=== PATIENT | female | born 1945 | race Caucasian/White ===

== ENCOUNTER 2017-11-28 15:46 | Emergency (ER) | payer MEDICARE ==
[2017-11-28] MEDS ORDERED: DIPHENHYDRAMINE HCL 50 MG/ML VIAL IV ONE (16:22)
[2017-11-28] MEDS ORDERED: METHYLPREDNISOLONE INJ 125 MG/2 ML SDV IV ONE (16:22)
[2017-11-28] MEDS ORDERED: NORMAL SALINE 1000 ML 1,000 ML IV ONE (16:22)
[2017-11-28] MEDS ORDERED: FAMOTIDINE INJ/PF 20 MG/2 ML SDV IV ONE (16:22)
--- NOTE | 2017-11-28 16:23 | ER Document Report ---
ED Medical Screen (RME) - General Chief Complaint: Eye Problem Stated Complaint: RT EYE SWELLING Time Seen by Provider: 11/28/17 16:18 TRAVEL OUTSIDE OF THE [place] IN LAST 30 DAYS: No - HPI Notes: 11/28/17 16:23 Right eye swelling diffuse pruritus - Related Data Allergies/Adverse Reactions: No Known Allergies Allergy (Unverified 11/28/17 15:47) Past Medical History - Social History Chew tobacco use (# tins/day): No Frequency of alcohol use: None Drug Abuse: None - Past Medical History Cardiac Medical History: Reports: Hx Hypercholesterolemia, Hx Hypertension Renal/ Medical History: Denies: Hx Peritoneal Dialysis Psychiatric Medical History: Reports: Hx Bipolar Disorder, Hx Schizophrenia Past Surgical History: Reports: Hx Section, Hx Cholecystectomy Review of Systems - Review of Systems Constitutional: Other - Eye swelling and itching Physical Exam - Vital signs Vitals: Temp Pulse Resp BP Pulse Ox 98.3 F 74 18 155/80 H 96 11/28/17 15:53 11/28/17 15:53 11/28/17 15:53 11/28/17 15:53 11/28/17 15:53 - General General appearance: Appears well In distress: None Course - Re-evaluation Re-evalutation: 11/28/17 16:23 Ms. has thereafter compromise at this time concern for allergic reaction to Benadryl Pepcid and Solu-Medrol ordered patient was placed in the main side - Vital Signs Vital signs: Temp Pulse Resp BP Pulse Ox 98.3 F 74 18 155/80 H 96 11/28/17 15:53 11/28/17 15:53 11/28/17 15:53 11/28/17 15:53 11/28/17 15:53
[2017-11-28] MEDS ORDERED: POLYMYXIN B SULFATE/TMP OPH SOLN (10 ML/ER DISP) OS ONE (17:30)
[2017-11-28 18:50] LABS: ABSOLUTE EOSINOPHILS # (AUTO) 0.2 10^3/uL (0.0-0.6); ABSOLUTE LYMPHOCYTES (AUTO) 1.3 10^3/uL (0.5-4.7); ABSOLUTE MONOCYTES (AUTO) 0.3 10^3/uL (0.1-1.4); ABSOLUTE NEUT (AUTO) 5.2 10^3/uL (1.7-8.2); BASOPHILS % (AUTO) 0.5 % (0-2); EOSINOPHILS % (AUTO) 3.4 % (0-6); HEMATOCRIT 39.7 % (36.0-47.0); LYMPHOCYTES % (AUTO) 18.6 % (13-45); MEAN CORPUSCULAR HEMOGLOBIN 31.1 pg (27.0-33.4); MEAN CORPUSCULAR HGB CONC 35.3 g/dL (32.0-36.0); MEAN CORPUSCULAR VOLUME 88 fl (80-97); MONOCYTES % (AUTO) 4.1 % (3-13); PLATELET COUNT 268 10^3/uL (150-450); RED CELL DISTRIBUTION WIDTH 12.9 % (11.5-14.0); SEGMENTED NEUTROPHILS % (AUTO) 73.4 % (42-78); TOTAL CELLS COUNTED % (AUTO) 100 %; WHITE BLOOD COUNT 7.1 10^3/uL (4.0-10.5)
--- NOTE | 2017-11-28 19:14 | ER Document Report ---
ED Eye Complaint - General Chief Complaint: Eye Problem Stated Complaint: RT EYE SWELLING Time Seen by Provider: 11/28/17 16:18 Mode of Arrival: Ambulatory Information source: Patient Notes: Pt is a 72 year old female who presents to the ER today for swelling to her right eyelid that she woke up with this morning. She also has itching all over her body without hives or rash. She states she's had the itching and hives before but never the eye swelling. She denies pain to the eye or any drainage that she knows of. She denies any new soaps, detergents, foods that she knows of but admits that she's been out in the yard a lot planting recently. She denies difficulty swallowing or breathing. TRAVEL OUTSIDE OF THE [place] IN LAST 30 DAYS: No - Related Data Allergies/Adverse Reactions: No Known Allergies Allergy (Unverified 11/28/17 15:47) Past Medical History - General Information source: Patient - Social History Smoking Status: Never Smoker Chew tobacco use (# tins/day): No Frequency of alcohol use: None Drug Abuse: None Family History: Reviewed & Not Pertinent Patient has suicidal ideation: No Patient has homicidal ideation: No - Past Medical History Cardiac Medical History: Reports: Hx Hypercholesterolemia, Hx Hypertension Renal/ Medical History: Denies: Hx Peritoneal Dialysis Psychiatric Medical History: Reports: Hx Bipolar Disorder, Hx Schizophrenia Past Surgical History: Reports: Hx Section, Hx Cholecystectomy Review of Systems - Review of Systems Constitutional: No symptoms reported EENT: See HPI Cardiovascular: No symptoms reported Respiratory: No symptoms reported Gastrointestinal: No symptoms reported Genitourinary: No symptoms reported Female Genitourinary: No symptoms reported Musculoskeletal: No symptoms reported Skin: See HPI Hematologic/Lymphatic: No symptoms reported Neurological/Psychological: No symptoms reported Physical Exam - Vital signs Vitals: Temp Pulse Resp BP Pulse Ox 98.3 F 74 18 155/80 H 96 11/28/17 15:53 11/28/17 15:53 11/28/17 15:53 11/28/17 15:53 11/28/17 15:53 - Notes Notes: PHYSICAL EXAMINATION: GENERAL: scratching her arms, but in no acute distress. HEAD: Atraumatic, normocephalic. EYES: right upper and lower eyelids swollen shut, mild erythema, nontender, Pupils equal round and reactive to light, extraocular movements intact, sclera anicteric, conjunctiva with white discharge to right eye only ENT: ear canals without erythema or foreign body, TMs pearly deleon with good bony landmarks, nares patent, oropharynx clear without exudates. Moist mucous membranes. NECK: Normal range of motion, supple without lymphadenopathy LUNGS: CTAB and equal. No wheezes rales or rhonchi. HEART: Regular rate and rhythm without murmurs EXTREMITIES: Normal range of motion, no pitting edema. No cyanosis. NEUROLOGICAL: Cranial nerves grossly intact. Normal sensory/motor exams. PSYCH: Normal mood, normal affect. SKIN: Warm, Dry, normal turgor, no rashes or lesions noted Course - Re-evaluation Re-evalutation: 11/28/17 20:45 labwork unremarkable today, pt doing much better after pepcid, solumedrol, benadryl, able to open eye for me without any issue when I walk into the room. Due to erythema and drainage from eye that appears purulent, I will start pt on polymixin eye drops and clindamycin to cover for preseptal cellulitis. I have advised to continue benadryl every 4 hours. She is a diabetic, so she was not sent home on oral steroids. - Vital Signs Vital signs: Temp Pulse Resp BP Pulse Ox 98.1 F 67 16 163/83 H 100 11/28/17 19:57 11/28/17 19:57 11/28/17 19:57 11/28/17 19:57 11/28/17 16:22 - Laboratory Result Diagrams: 11/28/17 18:35 11/28/17 18:35 Laboratory results interpreted by me: 11/28/17 18:35 Glucose 281 H Discharge - Discharge Clinical Impression: eye lid swelling Allergic reaction Qualifiers: Encounter type: initial encounter Qualified Code(s): T78.40XA - Allergy, unspecified, initial encounter Condition: Stable Disposition: HOME, SELF-CARE Instructions: Eyedrop Use ([facility]) Additional Instructions: Please apply one drop of the eyedrops to your right eye every 3 hours while awake for 7 days. Please take Benadryl every 4 hours for at least the next 2 days. Return immediately for any new or worsening symptoms. Follow up with primary care provider, call tomorrow to make followup appointment. Prescriptions: Clindamycin HCl 300 mg PO TID #30 capsule
[2017-11-28 19:16] LABS: ALANINE AMINOTRANSFERASE 31 U/L (9-52); ALBUMIN 3.9 g/dL (3.5-5.0); ALKALINE PHOSPHATASE 74 U/L (38-126); ANION GAP 9 (5-19); ASPARTATE AMINO TRANSFERASE 17 U/L (14-36); BILIRUBIN,DIRECT 0.3 mg/dL (0.0-0.4); BILIRUBIN,TOTAL 0.3 mg/dL (0.2-1.3); BLOOD UREA NITROGEN 17 mg/dL (7-20); CALCIUM 9.5 mg/dL (8.4-10.2); CARBON DIOXIDE 29 mmol/L (22-30); CHLORIDE 103 mmol/L (98-107); GLUCOSE 281 mg/dL (75-110); POTASSIUM 4.8 mmol/L (3.6-5.0); SODIUM 141.1 mmol/L (137-145); TOTAL PROTEIN 6.8 g/dL (6.3-8.2)
[2017-11-28 20:20] VITALS: BP 163/83
== END 2017-11-28 20:00 | disposition home or self-care (01) ==
LOC: ER 15:46
DX: R22.9 Localized swelling, mass and lump, unspecified (principal); T78.40XA Allergy, unspecified, initial encounter; X58.XXXA Exposure to other specified factors, initial encounter; E78.00 Pure hypercholesterolemia, unspecified; I10 Essential (primary) hypertension; Z90.49 Acquired absence of other specified parts of digestive tract
CPT/HCPCS: 99283; 96361; 96374; 96375; 36415; 85025; 80053; J1200; J3490; J2930; J7030; S0028

== ENCOUNTER 2017-12-03 11:12 | Emergency (ER) | payer MEDICARE ==
--- NOTE | 2017-12-03 11:34 | ER Document Report ---
ED Skin Rash/Insect Bite/Abscs - General Chief Complaint: Rash Stated Complaint: RASH Time Seen by Provider: 12/03/17 11:20 Mode of Arrival: Ambulatory Information source: Patient Notes: 72-year-old female presented to ED for complaint of rash itching burning to the eye face neck and arms. She states it started several days before Monday. She states she came in on Monday and was treated with steroids clindamycin and eyedrops. She states it is not gotten any better but is actually gotten worse. She is alert and oriented respirations regular and unlabored speaks with a even voice and walks with a even steady gait. TRAVEL OUTSIDE OF THE [place] IN LAST 30 DAYS: No - HPI Patient complains to provider of: Skin rash/lesion Onset: Last week Onset/Duration: Gradual, Worse Quality of pain: Burning Severity: Mild Pain Level: 2 Skin Character: Erythema, Tenderness, Thickening, Vesicular Skin Temperature: Warm Quality of rash: Itchy, Painful Exacerbated by: Denies Relieved by: Denies Similar symptoms previously: Yes Recently seen / treated by doctor: Yes - Related Data Allergies/Adverse Reactions: No Known Allergies Allergy (Verified 12/03/17 11:12) Past Medical History - General Information source: Patient - Social History Smoking Status: Never Smoker Frequency of alcohol use: None Drug Abuse: None Lives with: Alone Family History: Reviewed & Not Pertinent Patient has suicidal ideation: No Patient has homicidal ideation: No - Past Medical History Cardiac Medical History: Reports: Hx Hypercholesterolemia, Hx Hypertension Pulmonary Medical History: Reports: None EENT Medical History: Reports: None Neurological Medical History: Reports: None Endocrine Medical History: Reports: Hx Diabetes Mellitus Type 2 Renal/ Medical History: Reports: None Malignancy Medical History: Reports: None GI Medical History: Reports: None Musculoskeltal Medical History: Reports Hx Arthritis Psychiatric Medical History: Reports: Hx Bipolar Disorder, Hx Schizophrenia Traumatic Medical History: Reports: None Infectious Medical History: Reports: None Past Surgical History: Reports: Hx Section, Hx Cholecystectomy Review of Systems - Review of Systems Constitutional: No symptoms reported EENT: Other - Rash to the face all around the right eye Cardiovascular: No symptoms reported Respiratory: No symptoms reported Gastrointestinal: No symptoms reported Genitourinary: No symptoms reported Female Genitourinary: No symptoms reported Musculoskeletal: No symptoms reported Skin: Rash - Face arms Hematologic/Lymphatic: No symptoms reported Neurological/Psychological: No symptoms reported Physical Exam - Vital signs Vitals: Temp Pulse BP Pulse Ox 98.2 F 75 132/67 H 98 12/03/17 11:16 12/03/17 11:16 12/03/17 11:16 12/03/17 11:16 Interpretation: Normal - General General appearance: Appears well, Alert - HEENT Head: Normocephalic, Atraumatic, Other - Rash to most of the right side of the face some around the mouth on the left irritation to the right eye. Dr. Garcia examined the eye and stated there was no dendrites in the eye. Eyes: Normal Conjunctiva: No: Icteric, Injected, Purulent discharge Cornea: No: Corneal abrasion, Corneal ulcer, Dendrite, Embedded foreign body, Flourescein stain uptake, Opacified, Superficial foreign body Pupils: PERRL - Respiratory Respiratory status: No respiratory distress Chest status: Nontender Breath sounds: Normal Chest palpation: Normal - Cardiovascular Rhythm: Regular Heart sounds: Normal auscultation Murmur: No - Abdominal Inspection: Normal Distension: No distension Bowel sounds: Normal Tenderness: Nontender Organomegaly: No organomegaly - Back Back: Normal, Nontender - Extremities General upper extremity: Normal inspection, Nontender, Normal color, Normal ROM , Normal temperature General lower extremity: Normal inspection, Nontender, Normal color, Normal ROM , Normal temperature, Normal weight bearing. No: Danita's sign - Neurological Neuro grossly intact: Yes Cognition: Normal Orientation: AAOx4 Moises Coma Scale Eye Opening: Spontaneous Moises Coma Scale Verbal: Oriented Ward Coma Scale Motor: Obeys Commands Ward Coma Scale Total: 15 Speech: Normal Motor strength normal: LUE, RUE, LLE, RLE Sensory: Normal - Psychological Associated symptoms: Normal affect, Normal mood - Skin Skin Temperature: Warm Skin Moisture: Dry Skin Color: Normal Location of irregularity: Face - Areas of the rash to the face are rough and red there are some patches of vesicular type rash, Extremities - bilateral antecubitals vesicular type rash to the right arm, red inflammatory rash to the left arm, Other - Under bilateral breast red inflamed yeasty type rash Character of irregularity: Vesicular, Erythematous Irregularity with: Swelling, Inflammation Course - Re-evaluation Re-evalutation: 12/03/17 13:[address] Garcia to come and examined the multiple rashes. She agreed the part of the areas looked herpetiform, part looked like a yeast rash and part actually looked like psoriasis. Patient was recommended to follow-up with a bareback rider and in shop service technician and a primary doctor. She was treated with Valtrex and steroids. She was also treated with Mycolog to the yeast rash under her breast. Patient was given a prescription for the Valtrex steroids and Mycolog. Dr. Garcai examined the eyes and stated she did not see any dendrites in the right eye that the patient states is irritated. - Vital Signs Vital signs: Temp Pulse Resp BP Pulse Ox 98.1 F 71 18 134/69 H 97 12/03/17 12:37 12/03/17 12:37 12/03/17 12:37 12/03/17 12:37 12/03/17 12:37 Discharge - Discharge Clinical Impression: Rash and nonspecific skin eruption, Fungal rash of trunk Shingles Qualifiers: Herpes zoster complications: unspecified herpes zoster complication Qualified Code(s): B02.8 - Zoster with other complications Condition: Stable Disposition: HOME, SELF-CARE Instructions: Family Physicians / Practices Additional Instructions: Shingles You have shingles. Shingles is caused by the chicken pox virus, The virus has been surviving dormant in a nerve cell since you had chicken pox years ago. The virus has spread down a nerve root to reach the skin. Typically, an band-like area of pain and skin sensitivity develops, then small blisters erupt in the area. Shingles lasts two or three weeks, but sometimes leaves persistent pain. You are contagious -- you can give children chicken pox. But you can't give anyone shingles. Antiviral medicines (such as acyclovir or famciclovir) can help, but the rash usually worsens for about a week. Pain medication is often given if the area hurts. Antihistamines such as Benadryl may be necessary for itching if it does not respond to soda baths and calamine lotion. Sometimes cortisone medicine or nerve-block shots are necessary if pain is severe. If the area remains severely painful as the sores heal, or if you suspect an infection developing in the sores, see your doctor. STEROID MEDICATION: You have been given a medicine of the cortisone/steroid class. This medication is used to control inflammation or allergy. It is usually only given for a short period of time, until the acute process subsides. There are usually no side effects from short-term use of cortisone-like medications. Some persons feel an increased sense of well-being and are not sleepy at bedtime. Long-term use of cortisone medications is best avoided, unless required for a severe condition. If your condition does not remit, or relapses after the course of corticosteroid medication, you should consult your physician. You will be treated with Mycolog to the rash under her breast as this is a yeast rash. Apply that twice a day after cleaning the area with some soap water rinse and and pat dry. Try to keep this area dry. You will be treated with antiviral medicine for the shingles. You will be treated with steroid medication for the itching and irritation and pain from the various rashes. You need to follow-up with a primary doctor and a bareback rider as soon as possible it would also be advisable follow-up with the in shop service technician for the irritation to your right eye. This steroid medication may make you go a little higher with your diabetes please be careful what you eat to decrease the raise and your blood sugar. FOLLOW-UP CARE: If you have been referred to a physician for follow-up care, call the physician s office for an appointment as you were instructed or within the next two days. If you experience worsening or a significant change in your symptoms, notify the physician immediately or return to the Emergency Department at any time for re-evaluation. Prescriptions: Nystatin/Triamcin [Mycolog-II Ointment] 1 applic TP BID #1 tube Prednisone [Sterapred Ds] 1 pkg PO ASDIR PRN 12 Days tab.ds.pk PRN Reason: Valacyclovir HCl [Valtrex] 1,000 mg PO TID #21 tablet Forms: Elevated Blood Pressure Referrals: ANNE YANCEY DO [ACTIVE STAFF] - Follow up as needed SHANTAL NOEL DO [ACTIVE STAFF] - Follow up as needed
[2017-12-03] MEDS ORDERED: VALACYCLOVIR HCL 500 MG TABLET PO ONE (11:51)
[2017-12-03] MEDS ORDERED: PREDNISONE 20 MG TABLET PO ONE (11:52)
[2017-12-03] MEDS ORDERED: NYSTATIN/TRIAMCIN OINTMENT 15 GM TP ONE ×2 (11:52→12:45)
[2017-12-03] MEDS ORDERED: NYSTATIN/TRIAMCIN OINTMENT 15 GM TP PRN (12:52)
[2017-12-03 13:13] VITALS: BP 134/69
== END 2017-12-03 12:57 | disposition home or self-care (01) ==
LOC: ER 11:12
DX: R21 Rash and other nonspecific skin eruption (principal); B36.8 Other specified superficial mycoses; B02.8 Zoster with other complications; E78.00 Pure hypercholesterolemia, unspecified; I10 Essential (primary) hypertension; E11.9 Type 2 diabetes mellitus without complications; Z90.49 Acquired absence of other specified parts of digestive tract
CPT/HCPCS: 99282; J3490; A9270 ×2; J7512

== ENCOUNTER 2018-07-27 12:46 | Emergency (ER) | payer MEDICARE ==
--- NOTE | 2018-07-27 14:52 | ER Document Report ---
ED General - General Chief Complaint: Cough Stated Complaint: COUGH,CONGESTION Time Seen by Provider: 07/27/18 14:44 Mode of Arrival: Ambulatory Information source: Patient Notes: 73-year-old female with a history of hypertension and hyperlipidemia presents the emergency department with complaints of nasal congestion and a cough for the last 3 weeks. Patient denies any fever, chills, chest pain, shortness of breath, nausea, vomiting, diarrhea. She does not smoke. She denies a history of any lung diseases. TRAVEL OUTSIDE OF THE [place] IN LAST 30 DAYS: No - HPI Onset: Other - 3 weeks Severity: Mild Associated symptoms: Rhinnorhea Exacerbated by: Denies Relieved by: Denies Similar symptoms previously: Yes Recently seen / treated by doctor: No - Related Data Allergies/Adverse Reactions: No Known Allergies Allergy (Verified 07/27/18 12:50) Past Medical History - General Information source: Patient - Social History Smoking Status: Never Smoker Frequency of alcohol use: None Drug Abuse: None Family History: Reviewed & Not Pertinent Patient has suicidal ideation: No Patient has homicidal ideation: No - Past Medical History Cardiac Medical History: Reports: Hx Hypercholesterolemia, Hx Hypertension Endocrine Medical History: Reports: Hx Diabetes Mellitus Type 2 Renal/ Medical History: Denies: Hx Peritoneal Dialysis Musculoskeletal Medical History: Reports Hx Arthritis Psychiatric Medical History: Reports: Hx Bipolar Disorder, Hx Schizophrenia Past Surgical History: Reports: Hx Section, Hx Cholecystectomy Review of Systems - Review of Systems Constitutional: No symptoms reported EENT: Nose congestion, Nose discharge Cardiovascular: No symptoms reported Respiratory: Cough Gastrointestinal: No symptoms reported Genitourinary: No symptoms reported Female Genitourinary: No symptoms reported Musculoskeletal: No symptoms reported Skin: No symptoms reported Hematologic/Lymphatic: No symptoms reported Neurological/Psychological: No symptoms reported -: Yes All other systems reviewed and negative Physical Exam - Vital signs Vitals: Temp Pulse Resp BP Pulse Ox 99.5 F 52 L 16 130/53 H 98 07/27/18 13:20 07/27/18 13:20 07/27/18 13:20 07/27/18 13:20 07/27/18 13:20 - Notes Notes: PHYSICAL EXAMINATION: GENERAL: Well-appearing, well-nourished and in no acute distress. HEAD: Atraumatic, normocephalic. EYES: Pupils equal round and reactive to light, extraocular movements intact, conjunctiva are normal. ENT: Nares patent, oropharynx clear without exudates. Moist mucous membranes. NECK: Normal range of motion, supple without lymphadenopathy LUNGS: Breath sounds clear to auscultation bilaterally and equal. No wheezes rales or rhonchi. HEART: Regular rate and rhythm without murmurs Female : deferred Musculoskeletal: Normal range of motion, no pitting or edema. No cyanosis. NEUROLOGICAL: Cranial nerves grossly intact. Normal speech, normal gait. Normal sensory, motor exams PSYCH: Normal mood, normal affect. SKIN: Warm, Dry, normal turgor, no rashes or lesions noted. Course - Re-evaluation Re-evalutation: 07/27/18 17:19 Patient's vital signs are stable. She denies any chest pain or shortness of breath. Chest x-ray does not show an acute process. Flu was negative. I will discharge the patient home. Patient instructed to follow-up with her primary care physician this week, to take the medication prescribed as directed, and to return for worsening symptoms. - Vital Signs Vital signs: Temp Pulse Resp BP Pulse Ox 99.5 F 52 L 16 130/53 H 98 07/27/18 13:20 07/27/18 13:20 07/27/18 13:20 07/27/18 13:20 07/27/18 13:20 Discharge - Discharge Clinical Impression: Bronchitis Condition: Good Disposition: HOME, SELF-CARE Instructions: Bronchitis ([facility]) Prescriptions: Benzonatate [Tessalon Perle 100 mg Capsule] 100 mg PO Q8HP PRN #20 cap PRN Reason: Albuterol Sulfate [Proair HFA Inhalation Aerosol 8.5 gm MDI] 2 puff IH Q4H PRN #1 mdi PRN Reason: Azithromycin [Zithromax 250 mg Tablet] 250 mg PO ASDIR PRN #6 tablet PRN Reason: Referrals: FRANCE DE LA FUENTE MD [ACTIVE STAFF] - Follow up as needed
--- NOTE | 2018-07-27 15:54 | RADIOLOGY REPORT (SQ) ---
EXAM DESCRIPTION: CHEST 2 VIEWS COMPLETED DATE/TIME: 07/27/2018 3:41 pm REASON FOR STUDY: cough COMPARISON: None. EXAM PARAMETERS: NUMBER OF VIEWS: two views TECHNIQUE: Digital Frontal and Lateral radiographic views of the chest acquired. RADIATION DOSE: NA LIMITATIONS: none FINDINGS: LUNGS AND PLEURA: Nodular density just lateral to the aortic arch, not well visualized on lateral view. Calcified granuloma right upper lobe. No effusions. MEDIASTINUM AND HILAR STRUCTURES: No masses or contour abnormalities. HEART AND VASCULAR STRUCTURES: Heart normal size. No evidence for failure. BONES: No acute findings. HARDWARE: None in the chest. OTHER: No other significant finding. IMPRESSION: Possible lung nodule left upper lobe. No infiltrate. TECHNICAL DOCUMENTATION: JOB ID: [id number] [employer]- All Rights Reserved Reading location - IP/workstation name: [email or web address]
[2018-07-27 17:08] LABS: A TYPE INFLUENZA AG NEGATIVE (NEGATIVE); B INFLUENZA AG NEGATIVE (NEGATIVE)
[2018-07-27 17:28] VITALS: BP 142/64
== END 2018-07-27 17:31 | disposition home or self-care (01) ==
LOC: ER 12:46
DX: J40 Bronchitis, not specified as acute or chronic (principal); R05 Cough; R09.81 Nasal congestion; J34.89 Other specified disorders of nose and nasal sinuses; I10 Essential (primary) hypertension; E11.9 Type 2 diabetes mellitus without complications
CPT/HCPCS: 71046; 87804; 99283

== ENCOUNTER → 2018-09-04 | Outpatient (CLI) | payer MEDICARE ==
--- NOTE | 2018-09-04 11:01 | RADIOLOGY REPORT (SQ) ---
EXAM DESCRIPTION: CHEST PA/LATERAL COMPLETED DATE/TIME: 09/04/2018 10:43 am REASON FOR STUDY: COUGH COMPARISON: None. EXAM PARAMETERS: NUMBER OF VIEWS: two views TECHNIQUE: Digital Frontal and Lateral radiographic views of the chest acquired. RADIATION DOSE: NA LIMITATIONS: none FINDINGS: LUNGS AND PLEURA: Stable left upper lobe suprahilar are linear opacity, not significantly changed from prior. No evidence of new airspace disease. No pleural effusion or pneumothorax. Unch anged right upper lung calcified granuloma. MEDIASTINUM AND HILAR STRUCTURES: No masses or contour abnormalities. HEART AND VASCULAR STRUCTURES: Normal heart size. Aortic atherosclerosis. BONES: No acute findings. HARDWARE: None in the chest. OTHER: No other significant finding. IMPRESSION: No evidence of acute cardiopulmonary process. Stable nodular left suprahilar opacity possibly, scarring although underlying lesion is not excluded. Noncontrast CT could be considered for further characterization. TECHNICAL DOCUMENTATION: JOB ID: [id number] [employer]- All Rights Reserved Reading location - IP/workstation name: [email or web address]
== END ==
LOC: OD 10:28
PROVIDERS: ATTEND Nurse Practitioner Family
DX: R05 Cough (principal)
CPT/HCPCS: 71046

== ENCOUNTER → 2018-09-12 | Outpatient (CLI) | payer MEDICARE ==
--- NOTE | 2018-09-13 14:39 | WOMENS IMAGING REPORT ---
EXAM DESCRIPTION: BILAT SCREENING MAMMO W/CAD COMPLETED DATE/TIME: 09/12/2018 11:49 am REASON FOR STUDY: Z12.31 ROUTINE BILATERAL [id number] ENCNTR SCREEN MAMMOGRAM FOR MALIGNANT NE OPLASM OF [place] COMPARISON: Old films are not available TECHNIQUE: Standard craniocaudal and mediolateral oblique views of each breast recorded using [employer] l acquisition. LIMITATIONS: None. FINDINGS: RIGHT BREAST MASSES: No suspicious masses. CALCIFICATIONS: No new or suspicious calcifications. ARCHITECTURAL DISTORTION: None. DEVELOPING DENSITY: None. ASYMMETRY: None noted. OTHER: No other significant findings. LEFT BREAST MASSES: No suspicious masses. CALCIFICATIONS: Calcifications are scattered throughout the left breast 12 o'clock position about 4 t o 7 cm from the nipple. Evaluation of these microcalcifications with compression magnification view in the CC and 90 mediolateral orientations is recommended for followup. ARCHITECTURAL DISTORTION: None. DEVELOPING DENSITY: None. ASYMMETRY: None noted. OTHER: No other significant findings. Read with the assistance of CAD. .[facility] - R2 Cenova Version 1.3 .[facility] Imaging - R2 Cenova Version 1.3 .[facility] Imaging - R2 Cenova Version 2.4 .[facility] - R2 Cenova Version 2.4 .[facility] - R2 [employer] Version 9.2 IMPRESSION: No mammographic evidence for malignancy right breast. Calcifications left breast 12 o'clock position for which additional diagnostic mammograms are recomme nded. BREAST DENSITY: b. There are scattered areas of fibroglandular density. BIRAD: 0 Incomplete: Needs Additional Imaging Evaluation and/or prior Mammograms for Comparison. RECOMMENDATION: RECOMMENDED FOLLOW-UP: Additional diagnostic left breast mammograms The patient will be contacted for additional imaging. COMMENT: The patient has been notified of the results by letter per SA requirements. Additional no tification policies are in place for contacting patient with suspicious or incomplete findings. Quality ID #[id number]: The [employer] recommends an annual screening mammogram for women aged 40 years or over. This facility utilizes a reminder system to ensure that all patients receive reminder letters, and/or direct phone calls for appointments. This includes reminders for routine scr eening mammograms, diagnostic mammograms, or other Breast Imaging Interventions when appropriate. Th is patient will be placed in the appropriate reminder system. The [employer] (ACR) has developed recommendations for screening MRI of the breast s in certain patient populations, to be used in conjunction with mammography. Breast MRI surveillanc e may be appropriate for women with more than 20% lifetime risk of developing breast cancer as deter mined by genetic testing, significant family history of the disease, or history of mantle radiation f or Hodgkins Disease. ACR Practice Guidelines 2008. TECHNICAL DOCUMENTATION: FINDING NUMBER: (1) ASSESSMENT: (1) JOB ID: [id number] [employer]- All Rights Reserved Reading location - IP/workstation name: [email or web address]
== END ==
LOC: WI 11:31
PROVIDERS: ATTEND Nurse Practitioner Family
DX: Z12.31 Encounter for screening mammogram for malignant neoplasm of breast (principal); R92.0 Mammographic microcalcification found on diagnostic imaging of breast
CPT/HCPCS: 77067

== ENCOUNTER 2018-10-17 12:24 | Emergency (ER) | payer MEDICARE ==
[2018-10-17] MEDS ORDERED: PREDNISONE 20 MG TABLET PO ONE (13:33)
--- NOTE | 2018-10-17 13:39 | ER Document Report ---
ED Skin Rash/Insect Bite/Abscs - General Chief Complaint: Facial Swelling Stated Complaint: SWOLLEN EYES Time Seen by Provider: 10/17/18 13:25 Primary Care Provider: LALO GAN FNP-C [Primary Care Provider] - Follow up as needed Mode of Arrival: Ambulatory Information source: Patient TRAVEL OUTSIDE OF THE [place] IN LAST 30 DAYS: No - HPI Patient complains to provider of: Skin rash/lesion Notes: Patient here with complaints of itching/rash/swelling. Patient states that a few days ago she noticed some bumps to her right hand and right upper arm. She then started having some itching to the right side of her face. Yesterday she started noticing some swelling in the right side of face, this morning when she woke up the swelling was much worse. She states that it still itches. The skin lu somewhat. She denies any blurred or lost vision. She denies any fevers. She denies any lip, tongue swelling. No difficulty breathing or swallowing. She denies any vomiting or diarrhea. No chest pain or shortness of breath. No new soaps, detergents, lotions, medications. No known sick contacts. No other complaints. - Related Data Allergies/Adverse Reactions: No Known Allergies Allergy (Verified 10/17/18 13:22) Past Medical History - Social History Smoking Status: Never Smoker Chew tobacco use (# tins/day): No Frequency of alcohol use: None Drug Abuse: None Family History: Reviewed & Not Pertinent Patient has suicidal ideation: No Patient has homicidal ideation: No - Past Medical History Cardiac Medical History: Reports: Hx Hypercholesterolemia, Hx Hypertension Endocrine Medical History: Reports: Hx Diabetes Mellitus Type 2 Renal/ Medical History: Denies: Hx Peritoneal Dialysis Musculoskeletal Medical History: Reports Hx Arthritis Psychiatric Medical History: Reports: Hx Bipolar Disorder, Hx Schizophrenia Past Surgical History: Reports: Hx Section, Hx Cholecystectomy, Hx Orthopedic Surgery - right ankle Review of Systems - Review of Systems -: Yes All other systems reviewed and negative Physical Exam - Vital signs Vitals: Temp Pulse Resp BP Pulse Ox 97.9 F 75 18 148/65 H 99 10/17/18 12:34 10/17/18 12:34 10/17/18 12:34 10/17/18 12:34 10/17/18 12:34 - Notes Notes: GENERAL: alert, cooperative, nontoxic, no distress. HEAD: normocephalic, atraumatic EYES: conjunctiva pink without discharge, swelling to the right periorbital area. No redness, no tenderness. No vesicular lesions or rash. EARS: Mild swelling noted to the right earlobe. No redness, vesicles or drainage. No tenderness. NOSE: atraumatic, no external swelling MOUTH/THROAT: mucous membranes moist and pink. No lip or tongue swelling. Voice is normal. No trismus or drooling. NECK: soft, supple, full range of motion, no meningismus. CHEST: no distress, lungs clear and equal throughout. No wheezing, rales, rhonchi. CARDIAC: regular rate and rhythm, no murmur, normal capillary refill, normal pulses. BACK: full range of motion, no CVA tenderness. EXTREMITIES: full range of motion of all extremities. No redness, no swelling. NEURO: alert and oriented 3, no focal deficits, full range of motion of all extremities. PYSCH: appropriate mood, affect. Patient is cooperative. SKIN: pink, warm, dry, dried lesions noted to the right hand. Patchy area of redness to the right upper arm. Swelling noted to the right side of the face. No vesicles, no petechiae. Course - Re-evaluation Re-evalutation: 10/17/18 13:37 Patient is nontoxic-appearing with stable vitals. Patient is here with complaints of swelling and itchiness to her face. She states that she developed a rash to the right hand and upper arm in the past and had some itching to the right face, she now has some swelling to the right face. No difficulty breathing or swallowing. No blurred or loss of vision. No eye drainage. No chest pain or shortness of breath. On exam she is noted to have swelling to the right side of her face. There is no redness or tenderness. There is no vesicular lesions. Rash consistent with possible contact dermatitis that she also has some lesions to the right hand and right upper arm. She is a diabetic, she states that her blood sugars have been running in the 200. His point due to the amount of swelling she has to her face likely from an allergic reaction, I do believe that steroids would be beneficial. I did explain to the patient that this will potentially make her blood sugars run higher and that she needs to keep a close eye on this. Patient will be given a dose of prednisone in the emergency department. She will be discharged home with prednisone for the next 4 days, she is instructed to take [id number] antihistamines. She also given a prescription for Pepcid. Cool compresses disorder. Follow-up with her doctor if not better in the next 48 hours, sooner for worsening symptoms, high fever, difficulty breathing or swallowing, persistent vomiting, or for any further concerns. - Vital Signs Vital signs: Temp Pulse Resp BP Pulse Ox 97.9 F 75 18 148/65 H 99 10/17/18 12:34 10/17/18 12:34 10/17/18 12:34 10/17/18 12:34 10/17/18 12:34 Discharge - Discharge Clinical Impression: Allergic reaction Qualifiers: Encounter type: initial encounter Qualified Code(s): T78.40XA - Allergy, unspecified, initial encounter Condition: Stable Disposition: HOME, SELF-CARE Instructions: Acute Allergic Reaction ([facility]) Additional Instructions: Take medication as prescribed. Take [id number] Benadryl every 6 hours. Follow-up with your doctor if not better in the next 2 days, sooner for worsening swelling, difficulty breathing or swelling, persistent vomiting, severe pain, fever, or for any further concerns. Apply cool compresses to the rash/swelling. Prescriptions: Prednisone [Deltasone 20 mg Tablet] 2 tab PO DAILY 4 Days #8 tablet Referrals: LALO GAN FNP-C [Primary Care Provider] - Follow up as needed
[2018-10-17 14:15] VITALS: BP 131/57
== END 2018-10-17 14:15 | disposition home or self-care (01) ==
LOC: ER 12:24
DX: T78.40XA Allergy, unspecified, initial encounter (principal); R22.0 Localized swelling, mass and lump, head; R21 Rash and other nonspecific skin eruption; I10 Essential (primary) hypertension; E11.9 Type 2 diabetes mellitus without complications
CPT/HCPCS: 99283; A9270; J7512

== ENCOUNTER 2019-07-08 13:20 | Inpatient (IN) | payer MEDICARE ==
--- NOTE | 2019-07-08 13:50 | ER Document Report ---
ED Medical Screen (RME) - General Chief Complaint: Arm Pain Stated Complaint: ARM SWELLING Time Seen by Provider: 07/08/19 13:47 Primary Care Provider: LALO GAN FNP-C [Primary Care Provider] - Follow up as needed Mode of Arrival: Ambulatory Information source: Patient Notes: 74-year-old female presented to ED for a large abscess under the left arm. She states this started on Monday and now it is very painful. She does have redness down the left arm and spreading down the left chest. She states she has not noticed any fevers. But she is very fatigued all the time. Patient is alert oriented respirations regular nonlabored speaking in full sentences. She states she has had these before but never so big or painful. He states they usually come to ahead with warm soaks but this 1 would not. She is alert oriented respirations regular nonlabored speaking in full sentences. I have greeted and performed a rapid initial assessment of this patient. A comprehensive ED assessment and evaluation of the patient, analysis of test results and completion of medical decision making process will be conducted by an additional ED providers. TRAVEL OUTSIDE OF THE [place] IN LAST 30 DAYS: No - Related Data Allergies/Adverse Reactions: No Known Allergies Allergy (Verified 10/17/18 13:22) Past Medical History - Past Medical History Cardiac Medical History: Reports: Hx Hypercholesterolemia, Hx Hypertension Endocrine Medical History: Reports: Hx Diabetes Mellitus Type 2 Renal/ Medical History: Denies: Hx Peritoneal Dialysis Musculoskeltal Medical History: Reports Hx Arthritis Psychiatric Medical History: Reports: Hx Bipolar Disorder, Hx Schizophrenia Past Surgical History: Reports: Hx Section, Hx Cholecystectomy, Hx Orthopedic Surgery - right ankle Physical Exam - Vital signs Vitals: Temp Pulse Resp BP Pulse Ox 99.4 F 94 18 154/57 H 95 07/08/19 13:25 07/08/19 13:25 07/08/19 13:25 07/08/19 13:25 07/08/19 13:25 Course - Vital Signs Vital signs: Temp Pulse Resp BP Pulse Ox 99.4 F 94 18 154/57 H 95 07/08/19 13:25 07/08/19 13:25 07/08/19 13:25 07/08/19 13:25 07/08/19 13:25 Doctor's Discharge - Discharge Referrals: GILBERT,STORMY, SHALE PROCESSING TECHNICIAN-C [Primary Care Provider] - Follow up as needed
[2019-07-08 15:33] LABS: HEMATOCRIT 37.8 % (36.0-47.0); MEAN CORPUSCULAR HEMOGLOBIN 30.4 pg (27.0-33.4); MEAN CORPUSCULAR HGB CONC 34.5 g/dL (32.0-36.0); MEAN CORPUSCULAR VOLUME 88 fl (80-97); PLATELET COUNT 314 10^3/uL (150-450); RED BLOOD COUNT 4.29 10^6/uL (3.72-5.28); RED CELL DISTRIBUTION WIDTH 13.2 % (11.5-14.0)
[2019-07-08] MEDS ORDERED: NORMAL SALINE 1000 ML 1,000 ML IV ONE (15:49)
[2019-07-08 16:18] LABS: ALBUMIN 3.3 g/dL (3.5-5.0); ALKALINE PHOSPHATASE 118 U/L (38-126); ANION GAP 12 (5-19); ASPARTATE AMINO TRANSFERASE 21 U/L (14-36); BILIRUBIN,DIRECT 0.1 mg/dL (0.0-0.4); BILIRUBIN,TOTAL 0.5 mg/dL (0.2-1.3); BLOOD UREA NITROGEN 16 mg/dL (7-20); CALCIUM 8.5 mg/dL (8.4-10.2); CARBON DIOXIDE 26 mmol/L (22-30); CHLORIDE 90 mmol/L (98-107); GLUCOSE 338 mg/dL (75-110); POTASSIUM 4.1 mmol/L (3.6-5.0); TOTAL PROTEIN 6.3 g/dL (6.3-8.2)
[2019-07-08 16:29] LABS: ABSOLUTE LYMPHOCYTES# (MANUAL) 1.6 10^3/uL (0.5-4.7); ABSOLUTE MONOCYTES # (MANUAL) 2.1 10^3/uL (0.1-1.4); BAND NEUTROPHILS % (MANUAL) 2 % (3-5); BASOPHILS % (MANUAL) 0 % (0-2); EOSINOPHILS % (MANUAL) 2 % (0-6); LYMPHOCYTES % (MANUAL) 6 % (13-45); METAMYELOCYTES % (MANUAL) 1 % (0-1); MONOCYTES % (MANUAL) 8 % (3-13); PLATELET COMMENT ADEQUATE; PLATELET GIANT PRESENT; PLATELET LARGE PRESENT; RBC MORPHOLOGY COMMENT NORMO-CYTIC/CHROMIC; SEGMENTED NEUTROPHILS % (MAN) 81 % (42-78); TOTAL CELLS COUNTED 100; TOXIC GRANULATION SLIGHT; TOXIC VACUOLATION PRESENT
[2019-07-08] MEDS ORDERED: LIDOCAINE 1%/EPINEPHRINE INJ 20 ML VIAL INJ ONE (19:13)
[2019-07-08] MEDS ORDERED: VANCOMYCIN HCL INJ 1000 MG VIAL IV ONE (19:15)
--- NOTE | 2019-07-08 19:21 | RADIOLOGY REPORT (SQ) ---
EXAM DESCRIPTION: U/S EXTREMITY NONVASCULAR COMP COMPLETED DATE/TIME: 07/08/2019 5:11 pm REASON FOR STUDY: left axilla pain/swelling-eval abscess COMPARISON: None. TECHNIQUE: Dynamic and static grayscale images acquired of the localized site of clinical concern an d recorded on PACS. Additional selected color Doppler and spectral images recorded. SITE OF CONCERN: Left axilla LIMITATIONS: None. FINDINGS: Imaging of the left axilla shows no abnormal mass or fluid collection. IMPRESSION: No axillary abscess is seen. TECHNICAL DOCUMENTATION: JOB ID: [id number] [employer]- All Rights Reserved Reading location - IP/workstation name: [email or web address]
[2019-07-08] MEDS ORDERED: CLINDAMYCIN 600 MG/D5W RTU 600 MG/50 ML RTUPB IV ONE (21:34)
[2019-07-08] MEDS ORDERED: CEFTRIAXONE 2 GM/D5W RTU 2 GM/50 ML RTUPB IV ONE (21:34)
[2019-07-08] MEDS ORDERED: MAG HYDROX/AL HYDROX/SIMETH SUSP 30 ML UDCUP PO PRN (21:39)
[2019-07-08] MEDS ORDERED: DEXTROSE 40% GEL 15 GM TUBE PO PRN ×2 (21:39)
[2019-07-08] MEDS ORDERED: IPRATROPIUM/ALBUTEROL 0.5-2.5 MG/3 ML AMPUL NEB PRN (21:39)
[2019-07-08] MEDS ORDERED: DEXTROSE 50%-WATER 25 GM/50 ML DISP.SYRIN IV PRN ×2 (21:39)
[2019-07-08] MEDS ORDERED: GLUCAGON,HUMAN RECOMB 1 MG INJ IM PRN (21:39)
--- NOTE | 2019-07-08 21:43 | ER Document Report ---
ED Extremity Problem, Upper - General Chief Complaint: Abscess Stated Complaint: ARM SWELLING Time Seen by Provider: 07/08/19 13:47 Primary Care Provider: LALO GAN FNP-C [Primary Care Provider] - Follow up as needed Mode of Arrival: Ambulatory Information source: Patient TRAVEL OUTSIDE OF THE [place] IN LAST 30 DAYS: No - HPI Notes: Patient presents with left axillary pain. She states this is been going on for approximately 3 days. It is constant and severe. It is worse with movement and better with rest. It does radiate down the left side of her chest. It is a burning sensation. She states she had a similar type pain that with an abscess in her inguinal area area and this ruptured on its own several days ago. She states she is never had an abscess before that. She denies any known injuries or trauma. - Related Data Allergies/Adverse Reactions: No Known Allergies Allergy (Verified 10/17/18 13:22) Past Medical History - General Information source: Patient - Social History Smoking Status: Never Smoker Frequency of alcohol use: None Drug Abuse: None Family History: Reviewed & Not Pertinent Patient has suicidal ideation: No Patient has homicidal ideation: No - Past Medical History Cardiac Medical History: Reports: Hx Hypercholesterolemia, Hx Hypertension Endocrine Medical History: Reports: Hx Diabetes Mellitus Type 2 Renal/ Medical History: Denies: Hx Peritoneal Dialysis Musculoskeletal Medical History: Reports Hx Arthritis Psychiatric Medical History: Reports: Hx Bipolar Disorder, Hx Schizophrenia Past Surgical History: Reports: Hx Section, Hx Cholecystectomy, Hx Orthopedic Surgery - right ankle Review of Systems - Review of Systems Constitutional: Chills, Fever, Malaise Cardiovascular: denies: Chest pain, Palpitations Respiratory: denies: Cough, Short of breath -: Yes All other systems reviewed and negative Physical Exam - Vital signs Vitals: Temp Pulse Resp BP Pulse Ox 99.4 F 94 18 154/57 H 95 07/08/19 13:25 07/08/19 13:25 07/08/19 13:25 07/08/19 13:25 07/08/19 13:25 Interpretation: Hypertensive - General General appearance: Appears well, Alert - HEENT Head: Normocephalic, Atraumatic Eyes: Normal Pupils: PERRL - Respiratory Respiratory status: No respiratory distress Chest status: Nontender Breath sounds: Normal Chest palpation: Normal - Cardiovascular Rhythm: Regular Heart sounds: Normal auscultation Murmur: No - Abdominal Inspection: Normal Distension: No distension Bowel sounds: Normal Tenderness: Nontender Organomegaly: No organomegaly - Back Back: Normal, Nontender - Extremities General upper extremity: Other - Patient has a large tender indurated erythematous area in the left axilla. It is actively draining pus. It is consistent with a large abscess. General lower extremity: Normal inspection, Nontender, Normal color, Normal ROM, Normal temperature, Normal weight bearing. No: Danita's sign - Neurological Neuro grossly intact: Yes Cognition: Normal Orientation: AAOx4 [place] Coma Scale Eye Opening: Spontaneous Moises Coma Scale Verbal: Oriented [place] Coma Scale Motor: Obeys Commands Bon[place] Coma Scale Total: 15 Speech: Normal Motor strength normal: LUE, RUE, LLE, RLE Sensory: Normal - Psychological Associated symptoms: Normal affect, Normal mood - Skin Skin Temperature: Warm Skin Moisture: Dry Skin Color: Erythema Course - Re-evaluation Re-evalutation: 07/08/19 21:42 Patient has a large left axillary abscess. It is not amenable to bedside drainage. I did consult the surgeon Dr. Enciso who will drain the abscess and the operating room. Due to patient's multiple comorbidities she will be admitted to medicine. - Vital Signs Vital signs: Temp Pulse Resp BP Pulse Ox 99.4 F 94 18 154/57 H 95 07/08/19 13:25 07/08/19 13:25 07/08/19 13:25 07/08/19 13:25 07/08/19 13:25 - Laboratory Result Diagrams: 07/08/19 14:26 07/08/19 14:26 Laboratory results interpreted by me: 07/08/19 07/08/19 14:26 14:26 WBC 26.0 H Seg Neuts % (Manual) 81 H Band Neutrophils % 2 L Lymphocytes % (Manual) 6 L Abs Neuts (Manual) 21.8 H Abs Monocytes (Manual) 2.1 H Sodium 128.3 L Chloride 90 L Glucose 338 H Albumin 3.3 L - Diagnostic Test Radiology reviewed: Image reviewed, Reports reviewed Discharge - Discharge Clinical Impression: Abscess of left axilla, Cellulitis of axilla, left Condition: Stable Disposition: ADMITTED INPATIENT Admitting Provider: Nicolas (Hospitalist) Unit Admitted: Medical Floor Referrals: GILBERT,STORMY, TONGUE BINDER-C [Primary Care Provider] - Follow up as needed
--- NOTE | 2019-07-08 21:51 | PDOC CONSULTATION ---
Consultation Consult Date: 07/08/19 Provider Consulted: TAMARA BRUNNER Consult reason:: Left axillary abscess History of Present Illness Admission Date/PCP: ROSE CONSTANTINO History of Present Illness: JUSTYN DEE is a 74 year old female, obese, with a history of type 2 diabetes, who presents to the emergency room with a complaint of left axilla drainage, redness, pain, for the past few days. Her white blood cell count is 26,000. Past Medical History Cardiac Medical History: Reports: Hyperlipidema, Hypertension Endocrine Medical History: Reports: Diabetes Mellitus Type 2 Musculoskeltal Medical History: Reports: Arthritis Psychiatric Medical History: Reports: Bipolar Disorder Past Surgical History Past Surgical History: Reports: Section, Cholecystectomy, Orthopedic Surgery - right ankle Social History Smoking Status: Never Smoker Family History Family History: Reviewed & Not Pertinent Parental Family History Reviewed: No Children Family History Reviewed: No Sibling(s) Family History Reviewed.: No Medication/Allergy Allergies/Adverse Reactions: No Known Allergies Allergy (Verified 10/17/18 13:22) Physical Exam Vital Signs: Temp Pulse Resp BP Pulse Ox 99.4 F 94 18 154/57 H 95 07/08/19 13:25 07/08/19 13:25 07/08/19 13:25 07/08/19 13:25 07/08/19 13:25 Intake & Output 07/07/19 07/08/19 07/09/19 06:59 06:59 06:59 Intake Total 1000 Balance 1000 Weight 89 kg General appearance: PRESENT: no acute distress, obese, well-developed Head exam: PRESENT: atraumatic, normocephalic Eye exam: PRESENT: EOMI Mouth exam: PRESENT: dry mucosa, neck supple Teeth exam: PRESENT: poor dentation Neck exam: PRESENT: full ROM Respiratory exam: PRESENT: clear to auscultation yohana Cardiovascular exam: PRESENT: RRR Breast: PRESENT: Normal GI/Abdominal exam: PRESENT: soft Rectal exam: PRESENT: deferred Extremities exam: PRESENT: tenderness - Left axilla with erythema, edema, and drainage Musculoskeletal exam: PRESENT: full ROM Neurological exam: PRESENT: alert, awake, CN II-XII grossly intact, other - Neurovascular intact all 4 extremities Psychiatric exam: PRESENT: appropriate affect Skin exam: PRESENT: warm Results Laboratory Results: 07/08/19 14:26 07/08/19 14:26 07/08/19 07/08/19 14:26 14:26 WBC 26.0 H RBC 4.29 Hgb 13.0 Hct 37.8 MCV 88 MCH 30.4 MCHC 34.5 RDW 13.2 Plt Count 314 Seg Neutrophils % Not Reportable Sodium 128.3 L Potassium 4.1 Chloride 90 L Carbon Dioxide 26 Anion Gap 12 BUN 16 Creatinine 0.55 Est GFR ( Amer) > 60 Glucose 338 H Calcium 8.5 Total Bilirubin 0.5 AST 21 Alkaline Phosphatase 118 Total Protein 6.3 Albumin 3.3 L Impressions: Extremity Ultrasound 07/08/19 15:48 IMPRESSION: No axillary abscess is seen. Assessment & Plan - Plan Summary Plan Summary: Assessment: Left axilla redness, erythema, and drainage as per abscess Leukocytosis (26,000) Type 2 diabetes Plan: Patient to be admitted by the hospitalist service for medical management Incision and drainage of left axilla abscess tonight Procedure, risks, benefits, complications, alternatives, explained to the patient, she understands all the above, her questions were answered, she decided to proceed tonight N.p.o. IV fluids normal saline 125 mL per hour Vancomycin 1 g Rocephin 2 g IV piggyback Clindamycin 20 mg IV piggyback
[2019-07-08] MEDS: HEPARIN SOD (PORCINE) 5,000 UNIT/ML 1 ML VIAL SUBCUT SCH (22:47)
[2019-07-08] MEDS: NORMAL SALINE 1000 ML 1,000 ML IV PRN (23:30)
[2019-07-08] MEDS ORDERED: INFLUENZA QUAD (6MOS+) 2019-20 VAC 0.5 ML SYR IM ONE (23:38)
[2019-07-09] MEDS ORDERED: ONDANSETRON HCL INJ/PF 4 MG/2 ML SDV IV PRN (01:19)
--- NOTE | 2019-07-09 01:45 | PDOC H&P ---
History of Present Illness Admission Date/PCP: 07/08/19 21:46 ROSE CONSTANTINO Patient complains of: Left axillary pain and swelling History of Present Illness: JUSTYN DEE is a 74 year old female with a past medical history of insulin-dependent diabetes, hypertension, dyslipidemia, osteoarthritis and bipolar. She presents with several days of left axillary drainage erythema and pain. In the emergency room she is found to have exquisite pain and swelling with leukocytosis. Surgery is consulted and she is referred to the hospitalist for admission. Patient admits several episodes in the past but not this severe suggesting underlying axillary hidradenitis. She denies recent antibiotics and admits to diabetic indiscretion and noncompliance with medication and lifestyle. Past Medical History Cardiac Medical History: Reports: Hyperlipidema, Hypertension Endocrine Medical History: Reports: Diabetes Mellitus Type 2 Musculoskeltal Medical History: Reports: Arthritis Psychiatric Medical History: Reports: Bipolar Disorder Past Surgical History Past Surgical History: Reports: Section, Cholecystectomy, Orthopedic Surgery - right ankle Social History Information Source: Patient Smoking Status: Never Smoker Frequency of Alcohol Use: None Drugs: None - Advance Directive Resuscitation Status: Full Code Family History Family History: Hypertension Parental Family History Reviewed: Yes Children Family History Reviewed: Yes Sibling(s) Family History Reviewed.: Yes Medication/Allergy Allergies/Adverse Reactions: No Known Allergies Allergy (Verified 10/17/18 13:22) Review of Systems Constitutional: ABSENT: chills, fever(s), headache(s), weight gain, weight loss Eyes: ABSENT: visual disturbances Ears: ABSENT: hearing changes Cardiovascular: ABSENT: chest pain, dyspnea on exertion, edema, orthropnea, palpitations Respiratory: ABSENT: cough, hemoptysis Gastrointestinal: ABSENT: abdominal pain, constipation, diarrhea, hematemesis, hematochezia, nausea, vomiting Genitourinary: ABSENT: dysuria, hematuria Musculoskeletal: ABSENT: joint swelling Integumentary: ABSENT: rash, wounds Neurological: ABSENT: abnormal gait, abnormal speech, confusion, dizziness, focal weakness, syncope Psychiatric: ABSENT: anxiety, depression, homidical ideation, suicidal ideation Endocrine: ABSENT: cold intolerance, heat intolerance, polydipsia, polyuria Hematologic/Lymphatic: ABSENT: easy bleeding, easy bruising Physical Exam Vital Signs: Temp Pulse Resp BP Pulse Ox 100.6 F H 85 16 144/63 H 95 07/08/19 23:36 07/08/19 23:36 07/08/19 23:36 07/08/19 23:36 07/08/19 23:36 Intake & Output 07/07/19 07/08/19 07/09/19 11:59 11:59 11:59 Intake Total 1100 Balance 1100 Weight 91.4 kg General appearance: PRESENT: cooperative, mild distress, well-developed, well- nourished Head exam: PRESENT: atraumatic, normocephalic Eye exam: PRESENT: conjunctiva pink, EOMI, PERRLA. ABSENT: scleral icterus Ear exam: PRESENT: normal external ear exam Mouth exam: PRESENT: moist, tongue midline Neck exam: ABSENT: carotid bruit, JVD, lymphadenopathy, thyromegaly Respiratory exam: PRESENT: clear to auscultation yohana. ABSENT: rales, rhonchi, wheezes Cardiovascular exam: PRESENT: RRR. ABSENT: diastolic murmur, rubs, systolic murmur Pulses: PRESENT: normal dorsalis pedis pul Vascular exam: PRESENT: normal capillary refill GI/Abdominal exam: PRESENT: normal bowel sounds, soft. ABSENT: distended, guarding, mass, organolmegaly, rebound, tenderness Rectal exam: PRESENT: deferred Extremities exam: PRESENT: full ROM, other - Left axilla erythema swelling and serosanguineous drainage.. ABSENT: calf tenderness, clubbing, pedal edema Musculoskeletal exam: PRESENT: full ROM Neurological exam: PRESENT: alert, awake, oriented to person, oriented to place, oriented to time, oriented to situation, CN II-XII grossly intact. ABSENT: motor sensory deficit Psychiatric exam: PRESENT: appropriate affect, normal mood. ABSENT: homicidal ideation, suicidal ideation Skin exam: PRESENT: dry, intact, warm. ABSENT: cyanosis, rash Results Laboratory Results: 07/08/19 14:26 07/08/19 14:26 07/08/19 07/08/19 14:26 14:26 WBC 26.0 H RBC 4.29 Hgb 13.0 Hct 37.8 MCV 88 MCH 30.4 MCHC 34.5 RDW 13.2 Plt Count 314 Seg Neutrophils % Not Reportable Sodium 128.3 L Potassium 4.1 Chloride 90 L Carbon Dioxide 26 Anion Gap 12 BUN 16 Creatinine 0.55 Est GFR ( Amer) > 60 Glucose 338 H Calcium 8.5 Total Bilirubin 0.5 AST 21 Alkaline Phosphatase 118 Total Protein 6.3 Albumin 3.3 L Impressions: Extremity Ultrasound 07/08/19 15:48 IMPRESSION: No axillary abscess is seen. Assessment and Plan - Diagnosis (1) Diabetes Is this a current diagnosis for this admission?: Yes Plan: Outpatient regimen, Humalog sliding scale, follow-up A1c (2) Axillary hidradenitis suppurativa Is this a current diagnosis for this admission?: Yes Plan: Defer to surgery (3) Abscess of left axilla Is this a current diagnosis for this admission?: Yes Plan: Defer to surgery (4) Cellulitis of axilla, left Is this a current diagnosis for this admission?: Yes Plan: Agree with IV Rocephin and clindamycin, follow-up CBC blood and wound culture - Time Time Spent with patient: 25-34 minutes - Inpatient Certification Medical Necessity: Significant Comorbidiites Make Outpatient Treatment Too Risky, Need Close Monitoring Due to Risk of Patient Decompensation
[2019-07-09] MEDS ORDERED: FENTANYL CITRATE INJ/PF 100 MCG/2 ML AMPUL ONE (03:51)
[2019-07-09] MEDS ORDERED: PROPOFOL INJ 200 MG/20 ML VIAL IV ONE (03:51)
[2019-07-09] MEDS ORDERED: MIDAZOLAM 2 MG/2 ML INJ ONE (03:51)
[2019-07-09] MEDS ORDERED: BUPIVACAINE HCL 0.25 % INJ/PF (2.5 MG/1 ML) 30 ML VIAL ONE (04:01)
[2019-07-09] MEDS ORDERED: LIDOCAINE 1%/EPINEPHRINE INJ 20 ML VIAL ONE (04:01)
[2019-07-09] MEDS ORDERED: BUPIVACAINE INJ/PF LIPOSOME/PF 266 MG/20 ML SDV ONE (04:20)
[2019-07-09] MEDS ORDERED: LIDOCAINE 1% INJ-PF (10 MG/ML) 30 ML SDV ONE (04:28)
[2019-07-09] MEDS ORDERED: MORPHINE SULFATE 10 MG/ML INJ IV PRN (04:37)
[2019-07-09] MEDS ORDERED: FENTANYL CITRATE INJ/PF 100 MCG/2 ML AMPUL IV PRN ×3 (04:37)
[2019-07-09] MEDS ORDERED: MEPERIDINE HCL/PF INJ 25 MG/1 ML DISP.SYRIN IV PRN (04:37)
[2019-07-09] MEDS ORDERED: DIPHENHYDRAMINE HCL 50 MG/ML VIAL IV PRN (04:37)
[2019-07-09] MEDS ORDERED: PROMETHAZINE HCL INJ 25 MG/1 ML VIAL IV PRN ×2 (04:37)
[2019-07-09] MEDS ORDERED: OXYCODONE-ACETAMINOPHEN 5-325 MG TABLET PO PRN ×2 (04:37)
--- NOTE | 2019-07-09 05:01 | Operative Report ---
Nonrecallable Operative Report DATE OF SURGERY: 07/09/19 PREOPERATIVE DIAGNOSIS: Left axillary abscess x2 POSTOPERATIVE DIAGNOSIS: same OPERATION: Incision and drainage of left axillary abscess x2 SURGEON: TAMARA BRUNNER ANESTHESIA: Local - 40 mL Exparel; 30 mL 1% lidocaine TISSUE REMOVED OR ALTERED: Pus drained from the 2 left axillary abscesses COMPLICATIONS: None ESTIMATED BLOOD LOSS: Less than 10 mL INTRAOPERATIVE FINDINGS: 2 large left axillary abscesses one located in the medial and the other located in the lateral aspect of the axilla by a bridge of skin PROCEDURE: The procedure was done in the operating room, the patient was placed in a supine position, the area of the abscesses of the left axilla was prepped and draped in usual fashion. The area was infiltrated as above local anesthetic. The proposed line of incision was outlined with a surgical marker, a curvilinear skin incision was then made with Bovie in the medial and lateral aspect of the axilla approximately 8 centimeters long each, and a large amount of pus was obtained. This was sent for aerobic, anaerobic culture, and Gram stain. The incision was then extended further. After this, a finger was inserted inside one wound and the internal septations were disrupted so to reach the other i ncision and to make one single cavity. The abscess cavity was irrigated with saline solution. Local bleeders were cauterized. A 1" inch Hailee drain was threaded through both incision tied to itself with a 2-0 silk suture. Therefore, 2 large left axillary abscess cavities one located in the medial and the other located in the lateral aspect of the axilla were by a bridge of skin. Both abscess cavities were packed with 4 inch Kerlix roll soaked in a Betadine solution, covered with dry 4 x 4's, ABDs, Domingo bandage, and tape. The patient tolerated procedure well and transferred to the recovery room in satisfactory conditions.
[2019-07-09] MEDS ORDERED: FAMOTIDINE INJ/PF 20 MG/2 ML SDV IV ONE (05:45)
[2019-07-09] MEDS ORDERED: ACETAMINOPHEN 1,000 MG/100 ML RTUPB IV SCH (06:00)
[2019-07-09] MEDS: KETOROLAC TROMETHAMINE INJ/PF 30 MG/1 ML SDV IV SCH ×4 (06:02→22:59)
[2019-07-09] MEDS: HEPARIN SOD (PORCINE) 5,000 UNIT/ML 1 ML VIAL SUBCUT SCH ×3 (06:02→22:41)
[2019-07-09] MEDS: CLINDAMYCIN 600 MG/D5W RTU 600 MG/50 ML RTUPB IV SCH ×3 (06:02→22:41)
--- NOTE | 2019-07-09 07:24 | EKG REPORT ---
SEVERITY:- ABNORMAL ECG - SINUS RHYTHM LAD, CONSIDER LAFB OR INFERIOR INFARCT : Confirmed by: Ernesto Fitzpatrick MD 09-Jul-2019 07:23:08
[2019-07-09] MEDS: DOCUSATE SODIUM 100 MG CAPSULE PO SCH ×2 (09:11→18:00)
[2019-07-09] MEDS: INSULIN LISPRO 100 UNIT/ML 3 ML VIAL SUBCUT SCH ×3 (09:11→17:59)
[2019-07-09] MEDS: NORMAL SALINE 1000 ML 1,000 ML IV PRN (09:13)
[2019-07-09 09:26] LABS: HEMATOCRIT 32.7 % (36.0-47.0); HEMOGLOBIN 11.1 g/dL (12.0-15.5); MEAN CORPUSCULAR HEMOGLOBIN 29.6 pg (27.0-33.4); MEAN CORPUSCULAR HGB CONC 33.9 g/dL (32.0-36.0); MEAN CORPUSCULAR VOLUME 88 fl (80-97); PLATELET COUNT 295 10^3/uL (150-450); RED BLOOD COUNT 3.74 10^6/uL (3.72-5.28); RED CELL DISTRIBUTION WIDTH 12.9 % (11.5-14.0); WHITE BLOOD COUNT 22.2 10^3/uL (4.0-10.5)
[2019-07-09 09:40] LABS: ANION GAP 10 (5-19); BLOOD UREA NITROGEN 16 mg/dL (7-20); CALCIUM 7.3 mg/dL (8.4-10.2); CARBON DIOXIDE 25 mmol/L (22-30); CHLORIDE 94 mmol/L (98-107); GLUCOSE 328 mg/dL (75-110)
[2019-07-09 09:58] LABS: BASOPHILS % (MANUAL) 0 % (0-2); TOTAL CELLS COUNTED 100
[2019-07-09 09:59] LABS: ABSOLUTE LYMPHOCYTES# (MANUAL) 0.2 10^3/uL (0.5-4.7); ABSOLUTE MONOCYTES # (MANUAL) 1.6 10^3/uL (0.1-1.4); BAND NEUTROPHILS % (MANUAL) 1 % (3-5); BURR CELLS SLIGHT; EOSINOPHILS % (MANUAL) 2 % (0-6); HYPERSEGMENTED NEUTROPHILS PRESENT; LYMPHOCYTES % (MANUAL) 1 % (13-45); MONOCYTES % (MANUAL) 7 % (3-13); OVALOCYTES SLIGHT; PLATELET CLUMPS PRESENT; PLATELET COMMENT ADEQUATE; POIKILOCYTOSIS SLIGHT; POLYCHROMASIA SLIGHT; SEGMENTED NEUTROPHILS % (MAN) 89 % (42-78)
--- NOTE | 2019-07-09 11:47 | PDOC PROGRESS REPORT ---
Subjective Progress Note for:: 07/09/19 Reason For Visit: DIABETES,HYPONATREMIA,AXILLIARY HIDRADENITIS Patient recovered from operation, on floor, tolerating diet, pain controlled Physical Exam Vital Signs: Temp Pulse Resp BP Pulse Ox 99.4 F 79 18 116/50 L 94 07/09/19 10:15 07/09/19 10:15 07/09/19 10:15 07/09/19 10:15 07/09/19 10:15 Intake & Output 07/08/19 07/09/19 07/10/19 06:59 06:59 06:59 Intake Total 2200 1050 Output Total 20 Balance 2180 1050 Weight 90.1 kg General appearance: PRESENT: no acute distress Musculoskeletal exam: PRESENT: other - Left upper extremity chest wall things with some soaked through, still intact. Psychiatric exam: PRESENT: appropriate affect Results Laboratory Results: 07/09/19 08:45 07/09/19 08:45 07/08/19 07/08/19 07/09/19 14:26 14:26 08:45 WBC 26.0 H 22.2 H RBC 4.29 3.74 Hgb 13.0 11.1 L Hct 37.8 32.7 L MCV 88 88 MCH 30.4 29.6 MCHC 34.5 33.9 RDW 13.2 12.9 Plt Count 314 295 Seg Neutrophils % Not Reportable Not Reportable Sodium 128.3 L Potassium 4.1 Chloride 90 L Carbon Dioxide 26 Anion Gap 12 BUN 16 Creatinine 0.55 Est GFR ( Amer) > 60 Glucose 338 H Calcium 8.5 Total Bilirubin 0.5 AST 21 Alkaline Phosphatase 118 Total Protein 6.3 Albumin 3.3 L 07/09/19 08:45 WBC RBC Hgb Hct MCV MCH MCHC RDW Plt Count Seg Neutrophils % Sodium 128.8 L Potassium 4.0 Chloride 94 L Carbon Dioxide 25 Anion Gap 10 BUN 16 Creatinine 0.59 Est GFR ( Amer) > 60 Glucose 328 H Calcium 7.3 L Total Bilirubin AST Alkaline Phosphatase Total Protein Albumin Impressions: Extremity Ultrasound 07/08/19 15:48 IMPRESSION: No axillary abscess is seen. Assessment & Plan - Diagnosis (1) Abscess of left axilla Is this a current diagnosis for this admission?: Yes Plan: Impression: Patient is 10 hours status post drainage of left chest wall and left axillary abscesses, doing well, no complications, pain managed. Recommendations: 1. Advance diet as tolerated; put on stool softener 2. We will start dressing changes tomorrow; await culture results - Time Time Spent with patient: Less than 15 minutes Medications reviewed and adjusted accordingly: Yes Anticipated discharge: Home
[2019-07-09] MEDS: ACETAMINOPHEN 325 MG TABLET PO PRN (12:47)
[2019-07-09] MEDS ORDERED: CALCIUM GLUCONATE 2,222 MG in DEXTROSE 5%-WATER 100 ML IV ONE (15:56)
--- NOTE | 2019-07-09 15:59 | Progress Note ---
Provider Note Provider Note: 07/09/2019 Pressure 97 8 pulse 65, blood pressure 122/57, O2 sat 99% on room air White count on admission 26,000 today is down to 22.2 Patient is slightly hyponatremic 128, but this is stable. Glucose is elevated 328, patient was on Lantus at home but number of units is unknown, calcium slightly low at 7.3 Repeat BMP tomorrow morning Patient states she takes 20 units of Lantus at night, I will start her off on 16 units and see how she does while she is here Also replace her calcium Patient appears to have a tardive dyskinesia type movement, I suspect secondary to previous bipolar medications Currently on clindamycin and Rocephin
[2019-07-09] MEDS ORDERED: ENOXAPARIN SODIUM INJ 40 MG/0.4 ML DISP.SYRIN SUBCUT SCH (17:00)
[2019-07-09] MEDS: CEFTRIAXONE 2 GM/D5W RTU 2 GM/50 ML RTUPB IV SCH (17:58)
[2019-07-09] MEDS: ENOXAPARIN SODIUM INJ 40 MG/0.4 ML DISP.SYRIN SUBCUT SCH (17:59)
[2019-07-09] MEDS: FAMOTIDINE INJ/PF 20 MG/2 ML SDV IV SCH (17:59)
[2019-07-09] MEDS ORDERED: DOCUSATE SODIUM 100 MG CAPSULE PO SCH (18:00)
[2019-07-09] MEDS ORDERED: INSULIN LISPRO 100 UNIT/ML 3 ML VIAL SUBCUT ONE (22:30)
[2019-07-09] MEDS: INSULIN GLARGINE,HUM.REC.ANLOG 1,000 UNIT/10 ML VIAL SUBCUT SCH (22:41)
[2019-07-10] MEDS: KETOROLAC TROMETHAMINE INJ/PF 30 MG/1 ML SDV IV SCH ×3 (05:54→17:04)
[2019-07-10] MEDS: FAMOTIDINE INJ/PF 20 MG/2 ML SDV IV SCH ×2 (05:54→17:04)
[2019-07-10] MEDS: CLINDAMYCIN 600 MG/D5W RTU 600 MG/50 ML RTUPB IV SCH ×3 (05:55→22:09)
[2019-07-10] MEDS: HEPARIN SOD (PORCINE) 5,000 UNIT/ML 1 ML VIAL SUBCUT SCH ×2 (05:55→14:24)
[2019-07-10 06:42] LABS: HEMATOCRIT 34.2 % (36.0-47.0); MEAN CORPUSCULAR HEMOGLOBIN 30.4 pg (27.0-33.4); MEAN CORPUSCULAR HGB CONC 35.1 g/dL (32.0-36.0); MEAN CORPUSCULAR VOLUME 87 fl (80-97); PLATELET COUNT 299 10^3/uL (150-450); RED BLOOD COUNT 3.95 10^6/uL (3.72-5.28); RED CELL DISTRIBUTION WIDTH 13.1 % (11.5-14.0); WHITE BLOOD COUNT 15.7 10^3/uL (4.0-10.5)
[2019-07-10 07:17] LABS: ABSOLUTE LYMPHOCYTES# (MANUAL) 1.4 10^3/uL (0.5-4.7); ABSOLUTE MONOCYTES # (MANUAL) 2.4 10^3/uL (0.1-1.4); BAND NEUTROPHILS % (MANUAL) 4 % (3-5); BASOPHILS % (MANUAL) 1 % (0-2); EOSINOPHILS % (MANUAL) 7 % (0-6); LYMPHOCYTES % (MANUAL) 9 % (13-45); MONOCYTES % (MANUAL) 15 % (3-13); SEGMENTED NEUTROPHILS % (MAN) 64 % (42-78); TOTAL CELLS COUNTED 100; TOXIC GRANULATION SLIGHT; TOXIC VACUOLATION PRESENT
[2019-07-10 07:19] LABS: PLATELET COMMENT ADEQUATE
[2019-07-10] MEDS: INSULIN LISPRO 100 UNIT/ML 3 ML VIAL SUBCUT SCH ×3 (07:52→16:27)
[2019-07-10 08:38] LABS: ANION GAP 11 (5-19); BLOOD UREA NITROGEN 17 mg/dL (7-20); CALCIUM 8.3 mg/dL (8.4-10.2); CARBON DIOXIDE 24 mmol/L (22-30); CHLORIDE 95 mmol/L (98-107); GLUCOSE 299 mg/dL (75-110); POTASSIUM 3.9 mmol/L (3.6-5.0)
[2019-07-10] MEDS: DOCUSATE SODIUM 100 MG CAPSULE PO SCH ×2 (09:09→17:04)
--- NOTE | 2019-07-10 09:28 | PDOC PROGRESS REPORT ---
Subjective Progress Note for:: 07/10/19 Subjective:: No c/o Reason For Visit: DIABETES,HYPONATREMIA,AXILLIARY HIDRADENITIS Physical Exam Vital Signs: Temp Pulse Resp BP Pulse Ox 98.3 F 69 14 130/50 H 97 07/10/19 08:01 07/10/19 08:12 07/10/19 08:12 07/10/19 08:01 07/10/19 08:12 Intake & Output 07/09/19 07/10/19 07/11/19 06:59 06:59 06:59 Intake Total 2200 3746 50 Output Total 20 Balance 2180 3746 50 Weight 90.1 kg 92.6 kg General appearance: PRESENT: no acute distress Skin exam: PRESENT: other - Left axilla= decreased edema, minimal erythema and induration, wound bed clean, no granulation, minimal drainage, no odor Results Laboratory Results: 07/10/19 06:14 07/10/19 07:57 07/09/19 07/09/19 07/10/19 08:45 08:45 06:14 WBC 22.2 H 15.7 H RBC 3.74 3.95 Hgb 11.1 L 12.0 Hct 32.7 L 34.2 L MCV 88 87 MCH 29.6 30.4 MCHC 33.9 35.1 RDW 12.9 13.1 Plt Count 295 299 Seg Neutrophils % Not Reportable Not Reportable Sodium 128.8 L Potassium 4.0 Chloride 94 L Carbon Dioxide 25 Anion Gap 10 BUN 16 Creatinine 0.59 Est GFR ( Amer) > 60 Est GFR (Non-Af Amer) Glucose 328 H Calcium 7.3 L 07/10/19 07/10/19 06:14 07:57 WBC RBC Hgb Hct MCV MCH MCHC RDW Plt Count Seg Neutrophils % Sodium Cancelled 130.2 L Potassium Cancelled 3.9 Chloride Cancelled 95 L Carbon Dioxide Cancelled 24 Anion Gap Cancelled 11 BUN Cancelled 17 Creatinine Cancelled 0.53 Est GFR ( Amer) Cancelled > 60 Est GFR (Non-Af Amer) Cancelled Glucose Cancelled 299 H Calcium Cancelled 8.3 L Impressions: Extremity Ultrasound 07/08/19 15:48 IMPRESSION: No axillary abscess is seen. Assessment & Plan - Diagnosis (1) Abscess of left axilla Is this a current diagnosis for this admission?: Yes (2) Cellulitis of axilla, left Is this a current diagnosis for this admission?: Yes - Time Time Spent with patient: 25-34 minutes - Plan Summary Plan Summary: A/ POD#2 after I&D left axilla abscess x 2 Cx gram stain GPC, identification pending Wound clean, no granulation, decreased cellulitis, minimal drainage WBC decreased to 15.7 P/ NS wet-to-dry dressing change BID continue current abx regimen until identification is available
--- NOTE | 2019-07-10 16:16 | PDOC PROGRESS REPORT ---
Subjective Progress Note for:: 07/10/19 Reason For Visit: DIABETES,HYPONATREMIA,AXILLIARY HIDRADENITIS 07/10/2019 Patient was admitted for abscess of the left anterior chest wall left axilla Physical Exam Vital Signs: Temp Pulse Resp BP Pulse Ox 98.3 F 64 16 121/60 98 07/10/19 15:38 07/10/19 15:38 07/10/19 15:38 07/10/19 15:38 07/10/19 15:38 Intake & Output 07/09/19 07/10/19 07/11/19 06:59 06:59 06:59 Intake Total 2200 3746 404 Output Total 20 Balance 2180 3746 404 Weight 90.1 kg 92.6 kg General appearance: PRESENT: no acute distress, other - Patient has no complaints, in fact she is asking to go home Respiratory exam: PRESENT: clear to auscultation yohana. ABSENT: rales, rhonchi, wheezes Cardiovascular exam: PRESENT: RRR. ABSENT: diastolic murmur, rubs, systolic murmur Extremities exam: PRESENT: other - Deferred to general surgery Neurological exam: PRESENT: alert, awake, oriented to person, oriented to place, oriented to time, oriented to situation, CN II-XII grossly intact. ABSENT: motor sensory deficit Psychiatric exam: PRESENT: appropriate affect, normal mood. ABSENT: homicidal ideation, suicidal ideation Results Laboratory Results: 07/10/19 06:14 07/10/19 07:57 07/10/19 07/10/19 07/10/19 06:14 06:14 07:57 WBC 15.7 H RBC 3.95 Hgb 12.0 Hct 34.2 L MCV 87 MCH 30.4 MCHC 35.1 RDW 13.1 Plt Count 299 Seg Neutrophils % Not Reportable Sodium Cancelled 130.2 L Potassium Cancelled 3.9 Chloride Cancelled 95 L Carbon Dioxide Cancelled 24 Anion Gap Cancelled 11 BUN Cancelled 17 Creatinine Cancelled 0.53 Est GFR ( Amer) Cancelled > 60 Est GFR (Non-Af Amer) Cancelled Glucose Cancelled 299 H Calcium Cancelled 8.3 L Impressions: Extremity Ultrasound 07/08/19 15:48 IMPRESSION: No axillary abscess is seen. Assessment and Plan - Diagnosis (1) Tardive dyskinesia Is this a current diagnosis for this admission?: Yes (2) Abscess of left axilla Is this a current diagnosis for this admission?: Yes (3) Axillary hidradenitis suppurativa Is this a current diagnosis for this admission?: Yes (4) Cellulitis of axilla, left Is this a current diagnosis for this admission?: Yes (5) Diabetes Is this a current diagnosis for this admission?: Yes - Plan Summary Summary: 07/10/2019 Patient is doing well from her surgery, postop day #2. Luminary wound culture shows gram-positive cocci. Blood cultures negative x48 hours Cleocin IV every 8 hours day #2 Rocephin day #2 Currently taking Lantus 16 units nightly. Glucose still running high we will increase this to 20 units Continue .current management. Discussed this with the son who is in the room today - Time Time Spent with patient: 15-24 minutes
[2019-07-10] MEDS: ENOXAPARIN SODIUM INJ 40 MG/0.4 ML DISP.SYRIN SUBCUT SCH (17:01)
[2019-07-10] MEDS: CEFTRIAXONE 2 GM/D5W RTU 2 GM/50 ML RTUPB IV SCH (17:05)
[2019-07-10 17:57] LABS: INTERNATIONAL RATION (INR) 1.01; PROTHROMBIN TIME 13.3 SEC (11.4-15.4)
[2019-07-10 17:58] LABS: PARTIAL THROMBOPLASTIN TIME 24.9 SEC (23.5-35.8)
[2019-07-10] MEDS: INSULIN GLARGINE,HUM.REC.ANLOG 1,000 UNIT/10 ML VIAL SUBCUT SCH (22:09)
[2019-07-10 22:46] LABS: APPEARANCE,URINE SLIGHTLY-CLOUDY; BILIRUBIN,URINE NEGATIVE (NEGATIVE); COLOR,URINE YELLOW; GLUCOSE, URINE >=500 mg/dL (NEGATIVE); KETONES,URINE NEGATIVE (NEGATIVE); LEUKOCYTE ESTERASE,URINE TRACE (NEGATIVE); NITRITE,URINE NEGATIVE (NEGATIVE); PROTEIN,URINE NEGATIVE (NEGATIVE); URINE SPECIFIC GRAVITY 1.017; UROBILINOGEN,URINE NEGATIVE mg/dL (<2.0)
[2019-07-11] MEDS: KETOROLAC TROMETHAMINE INJ/PF 30 MG/1 ML SDV IV SCH ×4 (05:35→17:02)
[2019-07-11 05:59] LABS: HEMATOCRIT 36.2 % (36.0-47.0); HEMOGLOBIN 12.4 g/dL (12.0-15.5); MEAN CORPUSCULAR HEMOGLOBIN 29.6 pg (27.0-33.4); MEAN CORPUSCULAR HGB CONC 34.3 g/dL (32.0-36.0); MEAN CORPUSCULAR VOLUME 86 fl (80-97); PLATELET COUNT 339 10^3/uL (150-450); WHITE BLOOD COUNT 13.1 10^3/uL (4.0-10.5)
[2019-07-11 06:23] LABS: ABSOLUTE LYMPHOCYTES# (MANUAL) 1.8 10^3/uL (0.5-4.7); ABSOLUTE MONOCYTES # (MANUAL) 1.3 10^3/uL (0.1-1.4); BAND NEUTROPHILS % (MANUAL) 6 % (3-5); BASOPHILS % (MANUAL) 0 % (0-2); EOSINOPHILS % (MANUAL) 11 % (0-6); LYMPHOCYTES % (MANUAL) 13 % (13-45); METAMYELOCYTES % (MANUAL) 1 % (0-1); MONOCYTES % (MANUAL) 10 % (3-13); SEGMENTED NEUTROPHILS % (MAN) 58 % (42-78); TOTAL CELLS COUNTED 100
[2019-07-11 06:24] LABS: PLATELET COMMENT ADEQUATE; RBC MORPHOLOGY COMMENT NORMO-CYTIC/CHROMIC; TOXIC GRANULATION SLIGHT; TOXIC VACUOLATION PRESENT
[2019-07-11] MEDS: FAMOTIDINE INJ/PF 20 MG/2 ML SDV IV SCH (06:24)
[2019-07-11] MEDS: CLINDAMYCIN 600 MG/D5W RTU 600 MG/50 ML RTUPB IV SCH (06:24)
[2019-07-11 06:51] LABS: ANION GAP 6 (5-19); BLOOD UREA NITROGEN 14 mg/dL (7-20); CALCIUM 8.5 mg/dL (8.4-10.2); CARBON DIOXIDE 28 mmol/L (22-30); CHLORIDE 100 mmol/L (98-107); GLUCOSE 232 mg/dL (75-110); POTASSIUM 4.4 mmol/L (3.6-5.0)
[2019-07-11] MEDS: INSULIN LISPRO 100 UNIT/ML 3 ML VIAL SUBCUT SCH ×3 (08:17→17:02)
[2019-07-11] MEDS: DOCUSATE SODIUM 100 MG CAPSULE PO SCH ×2 (09:46→17:02)
[2019-07-11] MEDS ORDERED: VANCOMYCIN HCL 0 MG in DEXTROSE 5%-WATER 250 ML IV NR (10:30)
--- NOTE | 2019-07-11 10:30 | PDOC PROGRESS REPORT ---
Subjective Progress Note for:: 07/11/19 Reason For Visit: DIABETES,HYPONATREMIA,AXILLIARY HIDRADENITIS 07/11/2019 Patient admitted for cellulitis and abscess Physical Exam Vital Signs: Temp Pulse Resp BP Pulse Ox 97.7 F 69 17 161/67 H 99 07/11/19 07:46 07/11/19 07:46 07/11/19 07:46 07/11/19 07:46 07/11/19 07:46 Intake & Output 07/10/19 07/11/19 07/12/19 06:59 06:59 06:59 Intake Total 3746 1270 50 Output Total 1999 Balance 3746 -730 50 Weight 92.6 kg 92.1 kg General appearance: PRESENT: no acute distress, other - Sitting up in a chair in no distress Respiratory exam: PRESENT: clear to auscultation yohana. ABSENT: rales, rhonchi, wheezes Cardiovascular exam: PRESENT: RRR. ABSENT: diastolic murmur, rubs, systolic murmur Extremities exam: PRESENT: other - Deferred to general surgery Neurological exam: PRESENT: alert, awake, oriented to person, oriented to place, oriented to time, oriented to situation, CN II-XII grossly intact. ABSENT: motor sensory deficit Psychiatric exam: PRESENT: appropriate affect, normal mood. ABSENT: homicidal ideation, suicidal ideation Results Laboratory Results: 07/11/19 05:33 07/11/19 05:33 07/10/19 07/11/19 07/11/19 21:00 05:33 05:33 WBC 13.1 H RBC 4.20 Hgb 12.4 Hct 36.2 MCV 86 MCH 29.6 MCHC 34.3 RDW 13.0 Plt Count 339 Seg Neutrophils % Not Reportable Sodium 133.9 L Potassium 4.4 Chloride 100 Carbon Dioxide 28 Anion Gap 6 BUN 14 Creatinine 0.49 L Est GFR ( Amer) > 60 Glucose 232 H Calcium 8.5 Urine Color YELLOW Urine Appearance SLIGHTLY-CLOUDY Urine pH 6.0 Ur Specific Roy 1.017 Urine Protein NEGATIVE Urine Glucose (UA) >=500 H Urine Ketones NEGATIVE Urine Blood NEGATIVE Urine Nitrite NEGATIVE Ur Leukocyte Esterase TRACE H Urine WBC (Auto) 4 Urine RBC (Auto) 7 07/09/19 04:25 Axilla - Left Gram Stain - Final 07/09/19 04:25 Axilla - Left Wound Culture - Final Mrsa (Meth Resis Staph Aureus) Impressions: Extremity Ultrasound 07/08/19 15:48 IMPRESSION: No axillary abscess is seen. Assessment and Plan - Diagnosis (1) Tardive dyskinesia Is this a current diagnosis for this admission?: Yes (2) Abscess of left axilla Is this a current diagnosis for this admission?: Yes (3) Axillary hidradenitis suppurativa Is this a current diagnosis for this admission?: Yes (4) Cellulitis of axilla, left Is this a current diagnosis for this admission?: Yes (5) Diabetes Is this a current diagnosis for this admission?: Yes - Plan Summary Summary: 07/10/2019 Patient is doing well from her surgery, postop day #2. Preliminary wound culture shows gram-positive cocci. Blood cultures negative x48 hours Cleocin IV every 8 hours day #2 Rocephin day #2 Currently taking Lantus 16 units nightly. Glucose still running high we will increase this to 20 units Continue .current management. 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 Will have a PICC line inserted probably tomorrow. Will discharge based on general surgery's recommendation. Vancomycin will be started today from a peripheral IV, till PICC line can be inserted I explained this to the patient. I have put the orders in for discharge planning - Time Time Spent with patient: 25-34 minutes
[2019-07-11] MEDS: VANCOMYCIN HCL 1,250 MG in DEXTROSE 5%-WATER 250 ML IV SCH ×2 (12:56→22:17)
--- NOTE | 2019-07-11 13:58 | RADIOLOGY REPORT (SQ) ---
EXAM DESCRIPTION: PICC INSERTION; U/S GUIDE FOR VASCULAR ACCESS; FLUORO/CV PLACEMENT COMPLETED DATE/TIME: 07/11/2019 1:26 pm REASON FOR STUDY: 4 weeks outpatient abx; IV ABX COMPARISON: None. FLUOROSCOPY TIME: 12 seconds of fluoroscopy was used. 1 images saved to PACS. TECHNIQUE: Fluoroscopic and ultrasound guided PICC placement. LIMITATIONS: None. PROCEDURE: After written consent and assessment were obtained, the patient was brought into the fluo roscopy room and placed supine on the table. Ultrasound evaluation of potential access sites were per formed. After successfully identifying a patent right basilic vein, the right arm was prepped and suzanne ped in a sterile fashion along with the ultrasound probe. The entry site was anesthetized with 1% lid ocaine. A 21 gauge 7 cm needle was advanced through the skin and into the basilic vein under live ult rasound guidance. An ultrasound image was saved to PACS confirming access site. A .018 guide wire w as then inserted through the needle and into the venous system. The needle was then removed and an 11 blade scalpel was used to make a 1cm skin incision. A 5 fr peel-away sheath was advanced over the w wilfrido and into the venous system. A measurement was then made using the existing wire and live fluorosc opic guidance. The wire was then removed and trimmed. The PICC was advanced through the peel-away she ath and into the venous system. The peel-away sheath was removed and the catheter was adhered to the patients arm with a stat lock. The catheter was then aspirated and flushed and a sterile bandage was placed over the access site. A fluoroscopic spot image was saved to PACS confirming the catheter tip within the superior vena cava. IMPRESSION: SUCCESSFUL PLACEMENT OF A 5 FR DUAL LUMEN 35 CM PICC IN THE RIGHT BASILIC VEIN. COMMENT: Patient medication list reviewed: Yes- Quality ID# 130:Eligible professional attests to doc umenting in the medical record they obtained, updated, or reviewed the patient's current medications. . Quality ID 145: Final reports for procedures using fluoroscopy that document radiation exposure humberto violette, or exposure time and number of fluorographic images (if radiation exposure indices are not avail able) Quality ID #76: The patient was prepped and draped using maximum sterile barrier technique including cap, mask, sterile gown, sterile gloves, a large sterile sheet, hand hygiene, and 2% Chlorhexidine fo r cutaneous antisepsis. When ultrasound is used, sterile ultrasound techniques are followed requiring sterile gel and sterile probes. TECHNICAL DOCUMENTATION: JOB ID: [id number] [employer]- All Rights Reserved rev-11/03 Reading location - IP/workstation name: [id number]
[2019-07-11] MEDS: ACETAMINOPHEN 325 MG TABLET PO PRN (14:16)
--- NOTE | 2019-07-11 15:58 | PDOC PROGRESS REPORT ---
Subjective Progress Note for:: 07/11/19 Reason For Visit: DIABETES,HYPONATREMIA,AXILLIARY HIDRADENITIS Physical Exam Vital Signs: Temp Pulse Resp BP Pulse Ox 98.2 F 54 L 17 155/69 H 100 07/11/19 12:00 07/11/19 12:00 07/11/19 12:00 07/11/19 12:00 07/11/19 12:00 Intake & Output 07/10/19 07/11/19 07/12/19 06:59 06:59 06:59 Intake Total 3746 1270 530 Output Total 1999 Balance 3746 -730 530 Weight 92.6 kg 92.1 kg Results Laboratory Results: 07/11/19 05:33 07/11/19 05:33 07/10/19 07/11/19 07/11/19 21:00 05:33 05:33 WBC 13.1 H RBC 4.20 Hgb 12.4 Hct 36.2 MCV 86 MCH 29.6 MCHC 34.3 RDW 13.0 Plt Count 339 Seg Neutrophils % Not Reportable Sodium 133.9 L Potassium 4.4 Chloride 100 Carbon Dioxide 28 Anion Gap 6 BUN 14 Creatinine 0.49 L Est GFR ( Amer) > 60 Glucose 232 H Calcium 8.5 Urine Color YELLOW Urine Appearance SLIGHTLY-CLOUDY Urine pH 6.0 Ur Specific Justice 1.017 Urine Protein NEGATIVE Urine Glucose (UA) >=500 H Urine Ketones NEGATIVE Urine Blood NEGATIVE Urine Nitrite NEGATIVE Ur Leukocyte Esterase TRACE H Urine WBC (Auto) 4 Urine RBC (Auto) 7 07/09/19 04:25 Axilla - Left Gram Stain - Final 07/09/19 04:25 Axilla - Left Wound Culture - Final Mrsa (Meth Resis Staph Aureus) Impressions: Extremity Ultrasound 07/08/19 15:48 IMPRESSION: No axillary abscess is seen. Guidance Fluoroscopy 07/11/19 00:00 IMPRESSION: SUCCESSFUL PLACEMENT OF A 5 FR DUAL LUMEN 35 CM PICC IN THE RIGHT BASILIC VEIN. Interventional Vascular Procedure 07/11/19 00:00 IMPRESSION: SUCCESSFUL PLACEMENT OF A 5 FR DUAL LUMEN 35 CM PICC IN THE RIGHT BASILIC VEIN. PICC Line Insertion 07/11/19 00:00 IMPRESSION: SUCCESSFUL PLACEMENT OF A 5 FR DUAL LUMEN 35 CM PICC IN THE RIGHT BASILIC VEIN. Assessment & Plan - Diagnosis (1) Abscess of left axilla Is this a current diagnosis for this admission?: Yes - Time Time Spent with patient: Less than 15 minutes - Plan Summary Plan Summary: This is a 74-year-old diabetic female with a large left axillary abscess. The patient's wound was examined today. The packing was removed. There is no active purulence, or obviously necrotic tissue. The dressing was changed. Per the nursing staff, her blood sugars are still in the 2-3 100s. I have encouraged the patient to comply with all medical recommendations. It is essential that her blood sugars remain controlled, to assist with healing. I do not believe there will be any other surgical intervention necessary. Continue with dressing changes. Consult clinical social work aide for home health arrangements. Discharge once blood sugars are controlled.
[2019-07-11] MEDS: FAMOTIDINE 20 MG TABLET PO SCH (17:02)
[2019-07-11] MEDS: ENOXAPARIN SODIUM INJ 40 MG/0.4 ML DISP.SYRIN SUBCUT SCH (17:02)
[2019-07-11] MEDS: INSULIN GLARGINE,HUM.REC.ANLOG 1,000 UNIT/10 ML VIAL SUBCUT SCH (22:18)
[2019-07-12] MEDS: KETOROLAC TROMETHAMINE INJ/PF 30 MG/1 ML SDV IV SCH ×4 (00:01→17:40)
[2019-07-12] MEDS ORDERED: NORMAL SALINE 10 ML SDV (AFTER EACH USE) IV PRN (01:30)
[2019-07-12] MEDS: FAMOTIDINE 20 MG TABLET PO SCH ×2 (05:20→17:40)
[2019-07-12] MEDS: INSULIN LISPRO 100 UNIT/ML 3 ML VIAL SUBCUT SCH ×3 (07:55→16:32)
[2019-07-12 09:49] LABS: HEMATOCRIT 32.3 % (36.0-47.0); HEMOGLOBIN 11.5 g/dL (12.0-15.5); MEAN CORPUSCULAR HGB CONC 35.5 g/dL (32.0-36.0); MEAN CORPUSCULAR VOLUME 87 fl (80-97); PLATELET COUNT 330 10^3/uL (150-450); RED BLOOD COUNT 3.69 10^6/uL (3.72-5.28); RED CELL DISTRIBUTION WIDTH 12.9 % (11.5-14.0); WHITE BLOOD COUNT 10.3 10^3/uL (4.0-10.5)
[2019-07-12 09:55] LABS: ANION GAP 8 (5-19); BLOOD UREA NITROGEN 14 mg/dL (7-20); CALCIUM 8.6 mg/dL (8.4-10.2); CARBON DIOXIDE 28 mmol/L (22-30); CHLORIDE 97 mmol/L (98-107); GLUCOSE 311 mg/dL (75-110); POTASSIUM 4.9 mmol/L (3.6-5.0)
[2019-07-12] MEDS ORDERED: NORMAL SALINE 10 ML SDV (SCHEDULED) IV SCH (10:00)
--- NOTE | 2019-07-12 10:08 | PDOC PROGRESS REPORT ---
Subjective Progress Note for:: 07/12/19 Reason For Visit: DIABETES,HYPONATREMIA,AXILLIARY HIDRADENITIS Patient is no complaints; still having problems with elevated blood sugar but coming under better control. Dressing change this morning at 5:00 Physical Exam Vital Signs: Temp Pulse Resp BP Pulse Ox 97.7 F 58 L 16 148/64 H 100 07/12/19 07:32 07/12/19 07:32 07/12/19 07:32 07/12/19 07:32 07/12/19 07:32 Intake & Output 07/11/19 07/12/19 07/13/19 06:59 06:59 06:59 Intake Total 1270 1440 Output Total 2000 Balance -730 1440 Weight 92.1 kg 93.1 kg General appearance: PRESENT: no acute distress Musculoskeletal exam: PRESENT: other - Dressing intact Results Laboratory Results: 07/12/19 09:10 07/12/19 09:10 Sodium 132.6 L Potassium 4.9 Chloride 97 L Carbon Dioxide 28 Anion Gap 8 BUN 14 Creatinine 0.49 L Est GFR ( Amer) > 60 Glucose 311 H Calcium 8.6 07/09/19 04:25 Axilla - Left Gram Stain - Final 07/09/19 04:25 Axilla - Left Wound Culture - Final Mrsa (Meth Resis Staph Aureus) Impressions: Extremity Ultrasound 07/08/19 15:48 IMPRESSION: No axillary abscess is seen. Guidance Fluoroscopy 07/11/19 00:00 IMPRESSION: SUCCESSFUL PLACEMENT OF A 5 FR DUAL LUMEN 35 CM PICC IN THE RIGHT BASILIC VEIN. Interventional Vascular Procedure 07/11/19 00:00 IMPRESSION: SUCCESSFUL PLACEMENT OF A 5 FR DUAL LUMEN 35 CM PICC IN THE RIGHT BASILIC VEIN. PICC Line Insertion 07/11/19 00:00 IMPRESSION: SUCCESSFUL PLACEMENT OF A 5 FR DUAL LUMEN 35 CM PICC IN THE RIGHT BASILIC VEIN. Assessment & Plan - Diagnosis (1) Abscess of left axilla Is this a current diagnosis for this admission?: Yes Plan: Impression: MRSA soft tissue infection of the left axilla status post debridement on appropriate intravenous antibiotics Recommendations: 1. Outpatient basis with daily dressing changes; can be performed by home healt h nurse comparable to current local wound care 2. Patient can follow-up with [facility] in 1 to 2 weeks for follow-up check. 3. I have encouraged the nursing staff to get patient into the shower with the dressing off. 4. Will sign off for now; reconsult surgery if clinically indicated. - Time Time Spent with patient: Less than 15 minutes
[2019-07-12 10:17] LABS: ABSOLUTE LYMPHOCYTES# (MANUAL) 0.9 10^3/uL (0.5-4.7); ABSOLUTE MONOCYTES # (MANUAL) 1.9 10^3/uL (0.1-1.4); BAND NEUTROPHILS % (MANUAL) 3 % (3-5); BASOPHILS % (MANUAL) 0 % (0-2); EOSINOPHILS % (MANUAL) 6 % (0-6); LYMPHOCYTES % (MANUAL) 9 % (13-45); MONOCYTES % (MANUAL) 18 % (3-13); SEGMENTED NEUTROPHILS % (MAN) 64 % (42-78); TOTAL CELLS COUNTED 100
[2019-07-12 10:19] LABS: PLATELET COMMENT ADEQUATE; RBC MORPHOLOGY COMMENT NORMO-CYTIC/CHROMIC
[2019-07-12] MEDS: DOCUSATE SODIUM 100 MG CAPSULE PO SCH ×2 (10:59→17:40)
[2019-07-12] MEDS: VANCOMYCIN HCL 1,250 MG in DEXTROSE 5%-WATER 250 ML IV SCH (10:59)
[2019-07-12 12:30] LABS: APPEARANCE,URINE CLEAR; BILIRUBIN,URINE NEGATIVE (NEGATIVE); COLOR,URINE YELLOW; GLUCOSE, URINE >=500 mg/dL (NEGATIVE); KETONES,URINE NEGATIVE (NEGATIVE); LEUKOCYTE ESTERASE,URINE TRACE (NEGATIVE); NITRITE,URINE NEGATIVE (NEGATIVE); PROTEIN,URINE NEGATIVE (NEGATIVE); URINE SPECIFIC GRAVITY 1.011; UROBILINOGEN,URINE NEGATIVE mg/dL (<2.0)
[2019-07-12] MEDS: ENOXAPARIN SODIUM INJ 40 MG/0.4 ML DISP.SYRIN SUBCUT SCH (17:40)
--- NOTE | 2019-07-12 18:37 | PDOC DISCHARGE SUMMARY ---
Impression - Admit/DC Date/PCP Admission Date/Primary Care Provider: 07/08/19 21:46 ROSE CONSTANTINO Discharge Date: 07/12/19 - Discharge Diagnosis (1) Tardive dyskinesia Is this a current diagnosis for this admission?: Yes (2) Abscess of left axilla Is this a current diagnosis for this admission?: Yes (3) Axillary hidradenitis suppurativa Is this a current diagnosis for this admission?: Yes (4) Cellulitis of axilla, left Is this a current diagnosis for this admission?: Yes (5) Diabetes Is this a current diagnosis for this admission?: Yes (6) MRSA (methicillin resistant staph aureus) culture positive Is this a current diagnosis for this admission?: Yes - Assessment Summary: 07/10/2019 Patient is doing well from her surgery, postop day #2. Preliminary wound culture shows gram-positive cocci. Blood cultures negative x48 hours Cleocin IV every 8 hours day #2 Rocephin day #2 Currently taking Lantus 16 units nightly. Glucose still running high we will increase this to 20 units Continue .current management. 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 Will have a PICC line inserted probably tomorrow. Will discharge based on general surgery's recommendation. Vancomycin will be started today from a peripheral IV, till PICC line can be inserted I explained this to the patient. I have put the orders in for discharge planning 07/12/2019 PICC line was installed yesterday. she is currently getting vancomycin 1250 mg every 12 hours IV. Patient will have wound care done by home health and follow-up with the surgical wound clinic in approximately 1 to 2 weeks Discharge planning has arranged for home health to take care of all of her IV medication needs and wound care - Additional Information Resuscitation Status: Full Code Discharge Diet: Diabetic Discharge Activity: Balance Activity w/Rest Referrals: [facility] [Provider Group] - 07/22/19 8:15 am [facility] [Outside] Prescriptions: Insulin Glargine,Hum.rec.anlog [Lantus Insulin 100 Unit/1 ml 10 ml] 16 unit SUBCUT QHS 30 Days #1 unit Vancomycin HCl [Vancocin Inj 1000 mg Vial] 1,250 mg IV Q12 30 Days #1 vial Home Medications: Atorvastatin Calcium [Lipitor 40 mg Tablet] 40 mg PO QHS 07/09/19 Insulin Glargine,Hum.rec.anlog [Lantus Insulin 100 Unit/mL Insulin Pen] units SUBCUT QHS 07/09/19 Lisinopril [Prinivil 5 mg Tablet] 5 mg PO DAILY 07/09/19 Insulin Glargine,Hum.rec.anlog [Lantus Insulin 100 Unit/1 ml 10 ml] 16 unit SUBCUT QHS 30 Days #1 unit 07/12/19 Vancomycin HCl [Vancocin Inj 1000 mg Vial] 1,250 mg IV Q12 30 Days #1 vial 07/12/19 History of Present Illiness History of Present Illness: JUSTYN DEE is a 74 year old female Physical Exam Vital Signs: Temp Pulse Resp BP Pulse Ox 98.9 F 60 16 161/61 H 99 07/12/19 15:43 07/12/19 15:43 07/12/19 15:43 07/12/19 15:43 07/12/19 15:43 Intake & Output 07/11/19 07/12/19 07/13/19 06:59 06:59 06:59 Intake Total 1270 1440 1200 Output Total 2000 Balance -730 1440 1200 Weight 92.1 kg 93.1 kg Results Laboratory Results: WBC 10.3 10^3/uL (4.0-10.5) 07/12/19 09:10 RBC 3.69 10^6/uL (3.72-5.28) L 07/12/19 09:10 Hgb 11.5 g/dL (12.0-15.5) L 07/12/19 09:10 Hct 32.3 % (36.0-47.0) L 07/12/19 09:10 MCV 87 fl (80-97) 07/12/19 09:10 MCH 31.0 pg (27.0-33.4) 07/12/19 09:10 MCHC 35.5 g/dL (32.0-36.0) 07/12/19 09:10 RDW 12.9 % (11.5-14.0) 07/12/19 09:10 Plt Count 330 10^3/uL (150-450) 07/12/19 09:10 Lymph % (Auto) Not Reportable 07/12/19 09:10 [place] % (Auto) Not Reportable 07/12/19 09:10 Eos % (Auto) Not Reportable 07/12/19 09:10 Baso % (Auto) Not Reportable 07/12/19 09:10 Absolute Neuts (auto) Not Reportable 07/12/19 09:10 Absolute Lymphs (auto) Not Reportable 07/12/19 09:10 Absolute Monos (auto) Not Reportable 07/12/19 09:10 Absolute Eos (auto) Not Reportable 07/12/19 09:10 Absolute Basos (auto) Not Reportable 07/12/19 09:10 Total Counted 100 07/12/19 09:10 Seg Neutrophils % Not Reportable 07/12/19 09:10 Seg Neuts % (Manual) 64 % (42-78) 07/12/19 09:10 Band Neutrophils % 3 % (3-5) 07/12/19 09:10 Lymphocytes % (Manual) 9 % (13-45) L 07/12/19 09:10 Atypical Lymphs % 1 % (0) 07/11/19 05:33 Monocytes % (Manual) 18 % (3-13) H 07/12/19 09:10 Eosinophils % (Manual) 6 % (0-6) 07/12/19 09:10 Basophils % (Manual) 0 % (0-2) 07/12/19 09:10 Metamyelocytes % 1 % (0-1) 07/11/19 05:33 Abs Neuts (Manual) 6.9 10^3/uL (1.7-8.2) 07/12/19 09:10 Abs Lymphs (Manual) 0.9 10^3/uL (0.5-4.7) 07/12/19 09:10 Abs Monocytes (Manual) 1.9 10^3/uL (0.1-1.4) H 07/12/19 09:10 Absolute Eos (Manual) 0.6 10^3/uL (0.0-0.6) 07/12/19 09:10 Abs Basophils (Manual) 0.0 10^3/uL (0.0-0.2) 07/12/19 09:10 Hypersegmented Neuts PRESENT 07/09/19 08:45 Toxic Granulation SLIGHT 07/11/19 05:33 Toxic Vacuolation PRESENT 07/11/19 05:33 Clumped Platelets PRESENT 07/09/19 08:45 Large Platelets PRESENT 07/08/19 14:26 Giant Platelets PRESENT 07/08/19 14:26 Platelet Comment ADEQUATE 07/12/19 09:10 Polychromasia SLIGHT 07/09/19 08:45 Poikilocytosis SLIGHT 07/09/19 08:45 Ovalocytes SLIGHT 07/09/19 08:45 [place] Cells SLIGHT 07/09/19 08:45 RBC Morph Comment NORMO-CYTIC/CHROMIC 07/12/19 09:10 PT 13.3 SEC (11.4-15.4) 07/10/19 17:31 INR 1.01 07/10/19 17:31 APTT 24.9 SEC (23.5-35.8) 07/10/19 17:31 Sodium 132.6 mmol/L (137-145) L 07/12/19 09:10 Potassium 4.9 mmol/L (3.6-5.0) 07/12/19 09:10 Chloride 97 mmol/L (98-107) L 07/12/19 09:10 Carbon Dioxide 28 mmol/L (22-30) 07/12/19 09:10 Anion Gap 8 (5-19) 07/12/19 09:10 BUN 14 mg/dL (7-20) 07/12/19 09:10 Creatinine 0.49 mg/dL (0.52-1.25) L 07/12/19 09:10 Est GFR ( Amer) > 60 (>60) 07/12/19 09:10 Est GFR (Non-Af Amer) Cancelled 07/10/19 06:14 Est GFR (MDRD) Non-Af > 60 (>60) 07/12/19 09:10 Glucose 311 mg/dL (75-110) H 07/12/19 09:10 POC Glucose 284 mg/dL (70-110) H 07/12/19 15:42 Calcium 8.6 mg/dL (8.4-10.2) 07/12/19 09:10 Total Bilirubin 0.5 mg/dL (0.2-1.3) 07/08/19 14:26 Direct Bilirubin 0.1 mg/dL (0.0-0.4) 07/08/19 14:26 Neonat Total Bilirubin Not Reportable 07/08/19 14:26 Neonat Direct Bilirubin Not Reportable 07/08/19 14:26 Neonat Indirect Bili Not Reportable 07/08/19 14:26 AST 21 U/L (14-36) 07/08/19 14:26 ALT 17 U/L (<35) 07/08/19 14:26 Alkaline Phosphatase 118 U/L (38-126) 07/08/19 14:26 Total Protein 6.3 g/dL (6.3-8.2) 07/08/19 14:26 Albumin 3.3 g/dL (3.5-5.0) L 07/08/19 14:26 EGFR Cancelled 07/10/19 06:14 Urine Color YELLOW 07/12/19 09:52 Urine Appearance CLEAR 07/12/19 09:52 Urine pH 6.0 (5.0-9.0) 07/12/19 09:52 Ur Specific [place] 1.011 07/12/19 09:52 Urine Protein NEGATIVE mg/dL (NEGATIVE) 07/12/19 09:52 Urine Glucose (UA) >=500 mg/dL (NEGATIVE) H 07/12/19 09:52 Urine Ketones NEGATIVE mg/dL (NEGATIVE) 07/12/19 09:52 Urine Blood SMALL (NEGATIVE) H 07/12/19 09:52 Urine Nitrite NEGATIVE (NEGATIVE) 07/12/19 09:52 Urine Bilirubin NEGATIVE (NEGATIVE) 07/12/19 09:52 Urine Urobilinogen NEGATIVE mg/dL (<2.0) 07/12/19 09:52 Ur Leukocyte Esterase TRACE (NEGATIVE) H 07/12/19 09:52 Urine WBC (Auto) 1 /HPF 07/12/19 09:52 Urine RBC (Auto) 0 /HPF 07/12/19 09:52 Urine Bacteria (Auto) TRACE /HPF 07/12/19 09:52 Squamous Epi Cells Auto 3 /HPF 07/12/19 09:52 Urine Mucus (Auto) RARE /LPF 07/12/19 09:52 Urine Ascorbic Acid NEGATIVE (NEGATIVE) 07/12/19 09:52 Impressions: Extremity Ultrasound 07/08/19 15:48 IMPRESSION: No axillary abscess is seen. Guidance Fluoroscopy 07/11/19 00:00 IMPRESSION: SUCCESSFUL PLACEMENT OF A 5 FR DUAL LUMEN 35 CM PICC IN THE RIGHT BASILIC VEIN. Interventional Vascular Procedure 07/11/19 00:00 IMPRESSION: SUCCESSFUL PLACEMENT OF A 5 FR DUAL LUMEN 35 CM PICC IN THE RIGHT BASILIC VEIN. PICC Line Insertion 07/11/19 00:00 IMPRESSION: SUCCESSFUL PLACEMENT OF A 5 FR DUAL LUMEN 35 CM PICC IN THE RIGHT BASILIC VEIN. Stroke Is this a Stroke Patient?: No Acute Heart Failure - Is this a Heart Failure Patient?: No
[2019-07-12 20:50] VITALS: BP 153/64
== END 2019-07-12 20:50 | disposition home health service (06) | DRG 603 ==
LOC: ER 13:20 → EH 21:46 → 4W 23:00
PROVIDERS: ADMIT Internal Medicine; ATTEND Internal Medicine
PROC: 0J9F3ZX Drainage of Left Upper Arm Subcutaneous Tissue and Fascia, Percutaneous Approach, Diagnostic (ICD-10-PCS; principal; 2019-07-09 04:00)
PROC: 02HV33Z Insertion of Infusion Device into Superior Vena Cava, Percutaneous Approach (ICD-10-PCS; 2019-07-11)
PROC: B5181ZA Fluoroscopy of Superior Vena Cava using Low Osmolar Contrast, Guidance (ICD-10-PCS; 2019-07-11)
PROC: B548ZZA Ultrasonography of Superior Vena Cava, Guidance (ICD-10-PCS; 2019-07-11)
PROC: 3E02340 Introduction of Influenza Vaccine into Muscle, Percutaneous Approach (ICD-10-PCS; 2019-07-12)
DX: L02.412 Cutaneous abscess of left axilla (principal); E87.1 Hypo-osmolality and hyponatremia; E11.9 Type 2 diabetes mellitus without complications; L03.112 Cellulitis of left axilla; L73.2 Hidradenitis suppurativa; G24.01 Drug induced subacute dyskinesia; B95.62 Methicillin resistant Staphylococcus aureus infection as the cause of diseases classified elsewhere; E78.5 Hyperlipidemia, unspecified; I10 Essential (primary) hypertension; F31.9 Bipolar disorder, unspecified; E78.00 Pure hypercholesterolemia, unspecified; Z23 Encounter for immunization; Z79.899 Other long term (current) drug therapy; Z79.4 Long term (current) use of insulin
CPT/HCPCS: 00400; 36415; 36569; 76881; 76937; 77001; 80048; 80053; 81001; 82962; 85025; 85610; 85730; 87040; 87070; 87075; 87077; 87186; 87205; 90686; 93005; 93010; 96361; 96365; 96366; 96375; 99285; A6266; C9290; J0610; J0696; J1642; J1644; J1650; J1815; J1885; J2250; J2704; J3010; J3370; J3490; J7030; J7060; S0028

== ENCOUNTER 2019-07-14 16:51 | Emergency (ER) | payer MEDICARE ==
--- NOTE | 2019-07-14 17:43 | ER Document Report ---
ED Medical Screen (RME) - General Chief Complaint: Psych Problem Stated Complaint: PSYCH EVAL/SUICIDAL IDEATION Time Seen by Provider: 07/14/19 17:38 Primary Care Provider: LALO GAN FNP-C [Primary Care Provider] - Follow up as needed Mode of Arrival: Ambulatory Information source: Patient, Relative Notes: Patient presents emergency department with suicidal ideations. Reports recent history of abscess and PICC line with medications medications. Reports history of attempted suicide. Patient reports she is just overwhelmed. She called the crisis line today and the crisis line let her daughter know so they brought her here. Patient is calm answers all questions appropriately. I have greeted and performed a rapid initial assessment of this patient. A comprehensive ED assessment and evaluation of the patient, analysis of test results and completion of the medical decision making process will be conducted by additional ED providers. TRAVEL OUTSIDE OF THE [place] IN LAST 30 DAYS: No - Related Data Allergies/Adverse Reactions: No Known Allergies Allergy (Verified 07/14/19 17:33) Past Medical History - Social History Chew tobacco use (# tins/day): No Frequency of alcohol use: None Drug Abuse: None - Past Medical History Cardiac Medical History: Reports: Hx Hypercholesterolemia, Hx Hypertension Endocrine Medical History: Reports: Hx Diabetes Mellitus Type 2 Renal/ Medical History: Denies: Hx Peritoneal Dialysis Musculoskeltal Medical History: Reports Hx Arthritis Psychiatric Medical History: Reports: Hx Bipolar Disorder, Hx Schizophrenia Past Surgical History: Reports: Hx Section, Hx Cholecystectomy, Hx Orthopedic Surgery - right ankle Physical Exam - Vital signs Vitals: Temp Pulse Resp BP Pulse Ox 97.6 F 71 18 160/121 H 99 07/14/19 17:24 07/14/19 17:24 07/14/19 17:24 07/14/19 17:24 07/14/19 17:24 Course - Vital Signs Vital signs: Temp Pulse Resp BP Pulse Ox 97.6 F 71 18 160/121 H 99 07/14/19 17:24 07/14/19 17:24 07/14/19 17:24 07/14/19 17:24 07/14/19 17:24 Doctor's Discharge - Discharge Referrals: LALO GAN FNP-C [Primary Care Provider] - Follow up as needed
[2019-07-14 18:47] LABS: APPEARANCE,URINE CLOUDY; BILIRUBIN,URINE NEGATIVE (NEGATIVE); COLOR,URINE YELLOW; GLUCOSE, URINE >=500 mg/dL (NEGATIVE); KETONES,URINE NEGATIVE (NEGATIVE); LEUKOCYTE ESTERASE,URINE LARGE (NEGATIVE); NITRITE,URINE NEGATIVE (NEGATIVE); PROTEIN,URINE NEGATIVE (NEGATIVE); URINE SPECIFIC GRAVITY 1.024; UROBILINOGEN,URINE NEGATIVE mg/dL (<2.0)
[2019-07-14 18:58] LABS: URINE AMPHETAMINES SCREEN NEGATIVE; URINE BARBITURATES SCREEN NEGATIVE; URINE BENZODIAZEPINES SCREEN NEGATIVE; URINE COCAINE SCREEN NEGATIVE; URINE MARIJUANA (THC) SCREEN NEGATIVE; URINE METHADONE SCREEN NEGATIVE; URINE PHENCYCLIDINE SCREEN NEGATIVE
[2019-07-14 19:15] LABS: HEMATOCRIT 36.5 % (36.0-47.0); HEMOGLOBIN 12.5 g/dL (12.0-15.5); MEAN CORPUSCULAR HEMOGLOBIN 29.9 pg (27.0-33.4); MEAN CORPUSCULAR HGB CONC 34.2 g/dL (32.0-36.0); MEAN CORPUSCULAR VOLUME 87 fl (80-97); PLATELET COUNT 367 10^3/uL (150-450); RED BLOOD COUNT 4.18 10^6/uL (3.72-5.28); WHITE BLOOD COUNT 13.1 10^3/uL (4.0-10.5)
[2019-07-14 19:33] LABS: ACETAMINOPHEN < 10 ug/mL (10-30); ALBUMIN 3.4 g/dL (3.5-5.0); ALCOHOL < 10 mg/dL (NONE DETECTED); ALKALINE PHOSPHATASE 90 U/L (38-126); ANION GAP 10 (5-19); ASPARTATE AMINO TRANSFERASE 24 U/L (14-36); BILIRUBIN,DIRECT 0.3 mg/dL (0.0-0.4); BILIRUBIN,TOTAL 0.4 mg/dL (0.2-1.3); BLOOD UREA NITROGEN 15 mg/dL (7-20); CALCIUM 9.3 mg/dL (8.4-10.2); CARBON DIOXIDE 29 mmol/L (22-30); CHLORIDE 96 mmol/L (98-107); GLUCOSE 320 mg/dL (75-110); POTASSIUM 4.5 mmol/L (3.6-5.0); SALICYLATE < 1.0 mg/dL (2.0-20.0); TOTAL PROTEIN 6.8 g/dL (6.3-8.2)
[2019-07-14 19:41] LABS: ABSOLUTE LYMPHOCYTES# (MANUAL) 1.3 10^3/uL (0.5-4.7); BAND NEUTROPHILS % (MANUAL) 3 % (3-5); BASOPHILS % (MANUAL) 0 % (0-2); EOSINOPHILS % (MANUAL) 3 % (0-6); LYMPHOCYTES % (MANUAL) 10 % (13-45); MONOCYTES % (MANUAL) 15 % (3-13); PLATELET COMMENT ADEQUATE; RBC MORPHOLOGY COMMENT NORMO-CYTIC/CHROMIC; SEGMENTED NEUTROPHILS % (MAN) 69 % (42-78); TOTAL CELLS COUNTED 100
--- NOTE | 2019-07-14 22:02 | EKG REPORT ---
SEVERITY:- OTHERWISE NORMAL ECG - SINUS RHYTHM LEFT AXIS DEVIATION : Confirmed by: Ernesto Fitzpatrick MD 14-Jul-2019 22:02:00
--- NOTE | 2019-07-14 22:28 | ER Document Report ---
ED Psych Disorder / Suicide - General Chief Complaint: Psych Problem Stated Complaint: PSYCH EVAL/SUICIDAL IDEATION Time Seen by Provider: 07/14/19 17:38 Primary Care Provider: LALO CARVAJAL FNP-C [Primary Care Provider] - Follow up as needed Mode of Arrival: Ambulatory Notes: Patient is a 74-year-old female who presents to the emergency department with suicidal ideation. She does not have any plan, but states that she feels like she is in the way of her daughter. Patient is under the care of her daughter for a recent hospital admission with an abscess to her left axilla area that was drained and a [place] drain was placed to the area also. Patient does have history of suicide. She is not on a mood stabilizing medication. Patient has a history of Polar and schizophrenia. Apparently she called the crisis line and was brought here to the emergency department. She denies any fevers, body aches, chills, or any other symptoms. She is currently on vancomycin. She does not know the dose. TRAVEL OUTSIDE OF THE [place] IN LAST 30 DAYS: No - Related Data Allergies/Adverse Reactions: No Known Allergies Allergy (Verified 07/14/19 17:33) Past Medical History - General Information source: Patient, Relative - Social History Smoking Status: Never Smoker Chew tobacco use (# tins/day): No Frequency of alcohol use: None Drug Abuse: None Family History: Hypertension Patient has suicidal ideation: Yes Patient has homicidal ideation: No - Past Medical History Cardiac Medical History: Reports: Hx Hypercholesterolemia, Hx Hypertension Endocrine Medical History: Reports: Hx Diabetes Mellitus Type 2 Renal/ Medical History: Denies: Hx Peritoneal Dialysis Musculoskeletal Medical History: Reports Hx Arthritis Psychiatric Medical History: Reports: Hx Bipolar Disorder, Hx Schizophrenia Past Surgical History: Reports: Hx Section, Hx Cholecystectomy, Hx Orthopedic Surgery - right ankle Review of Systems - Review of Systems Notes: REVIEW OF SYSTEMS: CONSTITUTIONAL : Denies recent illness. Denies recent unintentional weight loss. Denies fever, chills, or sweats. EENT: Denies eye, ear, throat, or mouth pain, discharge, or symptoms. Denies nasal or sinus congestion. CARDIOVASCULAR: Denies chest pain. RESPIRATORY: Denies shortness of breath, cough, congestion, difficulty breathing, or wheezing. GASTROINTESTINAL: Denies nausea, vomiting, and diarrhea. Denies abdominal pain. Denies constipation. GENITOURINARY: Denies difficulty urinating, burning, blood in urine, urgency or frequency. MUSCULOSKELETAL: Denies neck and back pain. Denies joint pain or swelling. SKIN: See HPI. HEMATOLOGIC : Denies easy bruising or bleeding. LYMPHATIC: Denies swollen, painful, enlarged glands. NEUROLOGICAL: Denies no numbness or tingling denies weakness. Denies headache. Denies altered mental status. Denies alteration in speech. PSYCHIATRIC: See HPI. All other systems reviewed and negative. Physical Exam - Vital signs Vitals: Temp Pulse Resp BP Pulse Ox 97.6 F 71 18 160/121 H 99 07/14/19 17:24 07/14/19 17:24 07/14/19 17:24 07/14/19 17:24 07/14/19 17:24 - Notes Notes: PHYSICAL EXAMINATION: GENERAL: Appears well, healthy, well-nourished, no acute distress. HEAD: Normocephalic, atraumatic. EYES: PERRL, conjunctiva normal, all extraocular movements intact, sclera nonicteric ENT: Moist mucous membranes. NECK: Supple, no noticeable swelling, redness, rash. Normal range of motion. LUNGS: Equal breath sounds bilaterally and clear to auscultation. No wheezes rales or rhonchi. CARDIOVASCULAR: S1-S2, regular rate, regular rhythm. Radial pulses 2+, normal. ABDOMEN: Normoactive bowel sounds. Soft, nontender, no guarding, no rebound tenderness, and no masses palpated. EXTREMITIES: Normal strength and range of motion, no pitting or edema. No c yanosis. NEUROLOGICAL: Moves all extremities upon command. Strength 5/5 in all extremities. PSYCH: Normal mood, normal affect. SKIN: Warm, dry. Surgical wound noted to left axillary area with [place] drain in place. PICC line noted to right Course - Re-evaluation Re-evalutation: 07/15/19 01:00 Patient's hematology shows a white blood cell count of 13,100. Chemistries show her glucose of 320. Patient will be covered with sliding scale insulin and her Lantus. Patient has a large amount of leukocytes in her urine. She will be given a gram of Rocephin here in the emergency department. Her urine will also be sent for culture. Patient will also be started on Keflex. Vital signs are stable and patient does not show signs of urosepsis. Patient will also be restarted on her vancomycin. At this time, the patient is stable for mental health evaluation by Dr. Carvajal and the mental health team. - Vital Signs Vital signs: Temp Pulse Resp BP Pulse Ox 97.7 F 64 20 140/78 H 98 07/15/19 05:00 07/15/19 05:00 07/15/19 05:00 07/15/19 05:00 07/15/19 05:00 - Laboratory Result Diagrams: 07/14/19 19:05 07/14/19 19:05 Laboratory results interpreted by me: 07/14/19 07/14/19 07/14/19 18:00 19:05 19:05 WBC 13.1 H Lymphocytes % (Manual) 10 L Monocytes % (Manual) 15 H Abs Neuts (Manual) 9.4 H Abs Monocytes (Manual) 2.0 H Sodium 134.5 L Chloride 96 L Creatinine 0.50 L Glucose 320 H POC Glucose Albumin 3.4 L Urine Glucose (UA) >=500 H Urine Blood SMALL H Ur Leukocyte Esterase LARGE H Salicylates < 1.0 L Acetaminophen < 10 L 07/14/19 07/15/19 07/15/19 19:38 01:03 08:20 WBC Lymphocytes % (Manual) Monocytes % (Manual) Abs Neuts (Manual) Abs Monocytes (Manual) Sodium Chloride Creatinine Glucose POC Glucose 300 H 337 H 227 H Albumin Urine Glucose (UA) Urine Blood Ur Leukocyte Esterase Salicylates Acetaminophen Discharge - Discharge Clinical Impression: Suicidal ideation Urinary tract infection Qualifiers: Urinary tract infection type: acute cystitis Hematuria presence: with hematuria Qualified Code(s): N30.01 - Acute cystitis with hematuria Condition: Stable Disposition: PSYCH HOSP/UNIT Referrals: LALO CARVAJAL FNP-C [Primary Care Provider] - Follow up as needed
[2019-07-15] MEDS ORDERED: DEXTROSE 40% GEL 15 GM TUBE PO PRN ×2 (00:11)
[2019-07-15] MEDS ORDERED: GLUCAGON,HUMAN RECOMB 1 MG INJ IM PRN (00:11)
[2019-07-15] MEDS ORDERED: DEXTROSE 50%-WATER 25 GM/50 ML DISP.SYRIN IV PRN ×2 (00:11)
[2019-07-15] MEDS ORDERED: CEFTRIAXONE 1 GM/D5W RTU 1 GM/50 ML RTUPB IV ONE (00:30)
[2019-07-15] MEDS: INSULIN REG, HUMAN 100 UNIT/ML 3 ML VIAL (PYX) SUBCUT SCH ×5 (01:15→22:20)
[2019-07-15] MEDS ORDERED: ACETAMINOPHEN 325 MG TABLET PO ONE ×3 (04:40→23:09)
[2019-07-15] MEDS: VANCOMYCIN HCL INJ 1000 MG VIAL IV SCH ×2 (09:31→22:14)
[2019-07-15] MEDS: CEPHALEXIN 500 MG CAPSULE PO SCH ×2 (09:32→17:09)
--- NOTE | 2019-07-15 11:15 | ER Document Report ---
Doctor's Note Notes: 07/15/19 11:14 Patient in no distress at this time, lung sounds are clear to auscultation regular rate and rhythm. Patient does have a slightly depressed affect. She denies thoughts of harming herself at this time. Have spoken with both the psychiatric team and social media coordinator, patient's home health team apparently has al ready been attempting to facilitate placement for her.
[2019-07-15] MEDS: DIVALPROEX SODIUM 125 MG CAP.SPRINK PO SCH ×2 (11:59→17:09)
--- NOTE | 2019-07-15 17:31 | PSYCHOLOGICAL NOTE ---
Psych Note - Psych Note Date seen by psych provider: 07/15/19 Time seen by psych provider: 07:35 Psych Note: Patient is a 74-year-old female who presents to ED via POV with concerns for SI with no plan. Patient had surgery last week at [facility] for abscesses. Patient has a PICC line and needs antibiotics and wound care. Patient reports waking up Monday morning and feeling "alone." Patient reported she did not want to however suicide would be "an escape from the situation." Patient reports that she called the suicide crisis line and hung up because she was concerned about disclosing where she lived. Patient receives visits from a visiting nurse to help with wound care, and spoke with visiting nurse regarding hang up call suicide crisis line. Patient continued and verbalized believes that she was "in the way, had no control or reason to be here." Patient states she does not feel depressed and expressed the belief that "all I need to do is hanging on." Patient reports a chronic history of SI. Patient reports last suicide attempt was 40 years ago. Patient verbalized frustration with her current life circumstances. Patient states she lives with daughter in "section 8 housing" and has had to "hide" for 2 years. Patient states due to to rules a nd policy of section 8 housing, she is unable to disclose to anyone her current address. Patient states for all intents and purposes she is homeless. Patient describes estranged relationship with daughter. Patient elaborated that there is "no contact unless I am doing something wrong." Patient states financial stressors, specifically that her daughter controls her money. Patient stated daughter usually keeps up with the money in order for patient not to engage in "wasteful spending." Patient expressed concern that daughter was using money for her own personal needs, specifically the charge that showed on the bank statement for her daughter to get her nails done. Patient states daughter frequently states, "it is not fair" regarding her having to take care of patient. Patient states she feels like a burden to her daughter. Patient states she is in agreement with assisted living. Patient reports mental health diagnoses of bipolar schizophrenia. Patient has not received medication management in 2 years. Patient verbalized an awareness of manic phases. Patient states she usually engages in do it yourself projects to help focus. 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 Patient states she frequently has to "force myself to get up and get going." Patient states she helps provide childcare for her daughter who works full-time. The following collateral information was to by patient's daughter, Jennifer. Jennifer reports patient has always had issues with "being overwhelmed in general." Jennifer states patient is "scared because she has to rely on others for her physical care." Jennifer states she is unable to provide full-time care and is interested in pursuing assisted living. Jennifer reports she is not comfortable with patient coming home. Jennifer continues that "mom's mental health has been there my whole life." Jennifer reports she was unaware of patient's thoughts of suicide. Patient is alert and oriented to person, place, time and circumstance. Mood is normal with congruent affect. Patient denies homicidal ideation. Delusions are absent and behavior is congruent with an intact reality based presentation (i.e., organized and linear through processes). There is no observed behavior that suggests patient is responding to internal stimuli. Patient is able to engage in organized, rational thought processes. Patient is able to express needs and wants in a logical manner. Patient denies current auditory and visual hallucinations. Eye contact is appropriate. Conversational speech is within normal limits. Intellectual ability appears to be within average range. Attention and concentration are good. Insight, judgment and impulse control are currently poor. Medication recommendations per [facility] contracted psychiatrist Dr. Drew MD are as follows: Add Depakote 125MG, twice a day Impression/Plan: Patient is cleared from acute psychiatric services. Medication recommendations have been provided. Patient is experiencing quality of life issues that are being exasperated by her strained relationship with her daughter. Patient had surgery last week which resulted in the need for IV antibiotics and wound care. Patient states her daughter is unable/unwilling to offer assistance. Patient states she did not call the crisis line because she was suicidal; she called because she wanted help. Patient reports the last suici de attempt was 40 years ago. Patient verbalized an awareness of how her mental health diagnosis has effected her ability to function independently. Discharge planning is collaborating with insurance and [employer] for placement into assisted living. Dr. Carvajal was consulted on the care and management of this patient; attending physician is in agreement with recommendations and disposition.
[2019-07-15] MEDS ORDERED: LISINOPRIL 5 MG TABLET PO ONE (18:21)
[2019-07-15] MEDS ORDERED: INSULIN GLARGINE,HUM.REC.ANLOG 1,000 UNIT/10 ML VIAL SUBCUT SCH (22:00)
[2019-07-16] MEDS ORDERED: ACETAMINOPHEN 325 MG TABLET PO ONE (05:06)
[2019-07-16] MEDS: INSULIN REG, HUMAN 100 UNIT/ML 3 ML VIAL (PYX) SUBCUT SCH ×2 (08:12→13:10)
--- NOTE | 2019-07-16 09:28 | ER Document Report ---
Doctor's Note Notes: 07/16/19 09:27 Patient seen and examined this morning approximate 9:15 AM. Patient is sitting comfortably in the bed eating breakfast. She appears to have finished most of her breakfast. She states "I am doing much better". She has no specific concerns this morning. Blood pressure was rechecked and is significantly im proved now the patient is on scheduled blood pressure medication. Patient's skin is warm and dry. Her mood is somewhat flat but otherwise unremarkable. Her heart is regular rate and rhythm. Her lungs are clear to auscultation. Her abdomen is soft and nontender. She is currently awaiting placement and extended care or assisted living.
[2019-07-16] MEDS: DIVALPROEX SODIUM 125 MG CAP.SPRINK PO SCH ×2 (10:07→18:11)
[2019-07-16] MEDS: CEPHALEXIN 500 MG CAPSULE PO SCH ×3 (10:07→18:12)
[2019-07-16] MEDS: VANCOMYCIN HCL INJ 1000 MG VIAL IV SCH ×2 (10:14→22:48)
[2019-07-16] MEDS: LISINOPRIL 5 MG TABLET PO SCH (10:19)
[2019-07-16] MEDS ORDERED: NYSTATIN CREAM 15 GM TP ONE (10:54)
[2019-07-16] MEDS ORDERED: GLUCAGON,HUMAN RECOMB 1 MG INJ IM PRN (11:22)
[2019-07-16] MEDS ORDERED: DEXTROSE 40% GEL 15 GM TUBE PO PRN ×2 (11:22)
[2019-07-16] MEDS ORDERED: DEXTROSE 50%-WATER 25 GM/50 ML DISP.SYRIN IV PRN ×2 (11:22)
[2019-07-16 12:11] LABS: APPEARANCE,URINE SLIGHTLY-CLOUDY; BILIRUBIN,URINE NEGATIVE (NEGATIVE); COLOR,URINE STRAW; GLUCOSE, URINE >=500 mg/dL (NEGATIVE); KETONES,URINE NEGATIVE (NEGATIVE); LEUKOCYTE ESTERASE,URINE LARGE (NEGATIVE); NITRITE,URINE NEGATIVE (NEGATIVE); PROTEIN,URINE NEGATIVE (NEGATIVE); URINE SPECIFIC GRAVITY 1.008; UROBILINOGEN,URINE NEGATIVE mg/dL (<2.0)
[2019-07-16] MEDS ORDERED: INSULIN REG, HUMAN 100 UNIT/ML 3 ML VIAL (PYX) ONE (12:15)
[2019-07-16] MEDS ORDERED: INSULIN LISPRO 100 UNIT/ML 3 ML VIAL SUBCUT ONE (12:45)
[2019-07-16 13:22] LABS: HEMOGLOBIN 12.2 g/dL (12.0-15.5); MEAN CORPUSCULAR HEMOGLOBIN 30.5 pg (27.0-33.4); MEAN CORPUSCULAR HGB CONC 34.9 g/dL (32.0-36.0); MEAN CORPUSCULAR VOLUME 88 fl (80-97); PLATELET COUNT 356 10^3/uL (150-450); RED BLOOD COUNT 3.99 10^6/uL (3.72-5.28); RED CELL DISTRIBUTION WIDTH 13.1 % (11.5-14.0)
[2019-07-16 13:37] LABS: ALBUMIN 3.3 g/dL (3.5-5.0); ALKALINE PHOSPHATASE 75 U/L (38-126); ANION GAP 6 (5-19); ASPARTATE AMINO TRANSFERASE 19 U/L (14-36); BILIRUBIN,TOTAL 0.3 mg/dL (0.2-1.3); BLOOD UREA NITROGEN 13 mg/dL (7-20); CALCIUM 8.8 mg/dL (8.4-10.2); CARBON DIOXIDE 31 mmol/L (22-30); CHLORIDE 99 mmol/L (98-107); GLUCOSE 246 mg/dL (75-110); POTASSIUM 4.8 mmol/L (3.6-5.0); TOTAL PROTEIN 6.2 g/dL (6.3-8.2)
[2019-07-16 13:58] LABS: ABSOLUTE MONOCYTES # (MANUAL) 0.8 10^3/uL (0.1-1.4); BASOPHILS % (MANUAL) 1 % (0-2); EOSINOPHILS % (MANUAL) 10 % (0-6); LYMPHOCYTES % (MANUAL) 16 % (13-45); METAMYELOCYTES % (MANUAL) 1 % (0-1); MONOCYTES % (MANUAL) 7 % (3-13); SEGMENTED NEUTROPHILS % (MAN) 63 % (42-78); TOTAL CELLS COUNTED 100
[2019-07-16 13:59] LABS: PLATELET COMMENT ADEQUATE; POLYCHROMASIA SLIGHT; TOXIC GRANULATION 1+; TOXIC VACUOLATION PRESENT
[2019-07-16] MEDS ORDERED: METFORMIN HCL 500 MG TABLET PO SCH (16:00)
[2019-07-16] MEDS: INSULIN LISPRO 100 UNIT/ML 3 ML VIAL SUBCUT SCH ×2 (16:41→22:43)
--- NOTE | 2019-07-16 17:24 | PDOC CONSULTATION ---
Consultation Consult Date: 07/16/19 Attending physician:: CARIN HARDY Provider Consulted: WOJCIECH HUNTER Consult reason:: Diabetes Management History of Present Illness Admission Date/PCP: ROSE CONSTANTINO History of Present Illness: JUSTYN DEE is a 74 year old female with past medical medical history of diabetes, hypertension, hypercholesterolemia, who is pending placement at assisted living currently on social hold at the ED hospitalist consulted for management of diabetes. Comfortably resting in bed no apparent distress, complaining of generalized pain otherwise denies any fever, chills, nausea, vomiting, diarrhea, constipation or any urinary symptoms. P.o. tolerant. Having normal bowel and bladder movements. Past Medical History Cardiac Medical History: Reports: Hyperlipidema, Hypertension Endocrine Medical History: Reports: Diabetes Mellitus Type 2 Musculoskeltal Medical History: Reports: Arthritis Psychiatric Medical History: Reports: Bipolar Disorder Past Surgical History Past Surgical History: Reports: Section, Cholecystectomy, Orthopedic Surgery - right ankle Social History Smoking Status: Never Smoker Electronic Cigarette use?: No Frequency of Alcohol Use: None Drugs: None Family History Family History: Hypertension Parental Family History Reviewed: Yes Children Family History Reviewed: Yes Sibling(s) Family History Reviewed.: Yes Medication/Allergy Home Medications: Insulin Glargine,Hum.rec.anlog [Lantus Insulin 100 Unit/1 ml 10 ml] 16 unit SUBCUT QHS 30 Days #1 unit 07/12/19 Vancomycin HCl [Vancocin Inj 1000 mg Vial] 1,250 mg IV Q12 30 Days #1 vial 07/12/19 Metformin HCl [Glucophage 500 mg Tablet] 500 mg PO BIDACBS 07/15/19 Allergies/Adverse Reactions: No Known Allergies Allergy (Verified 07/14/19 17:33) Physical Exam Vital Signs: Temp Pulse Resp BP Pulse Ox 98.0 F 60 18 158/81 H 97 07/16/19 09:20 07/16/19 09:20 07/16/19 09:20 07/16/19 09:20 07/16/19 09:20 Intake & Output 07/15/19 07/16/19 07/17/19 06:59 06:59 06:59 Intake Total 50 Balance 50 Weight 90.1 kg General appearance: PRESENT: no acute distress, well-developed, well-nourished Head exam: PRESENT: atraumatic, normocephalic Respiratory exam: PRESENT: clear to auscultation yohana. ABSENT: rales, rhonchi, wheezes Cardiovascular exam: PRESENT: RRR. ABSENT: diastolic murmur, rubs, systolic murmur GI/Abdominal exam: PRESENT: normal bowel sounds, soft. ABSENT: distended, guarding, mass, organolmegaly, rebound, tenderness Neurological exam: PRESENT: alert, awake, oriented to person, oriented to place, oriented to time, oriented to situation, CN II-XII grossly intact. ABSENT: motor sensory deficit Results Laboratory Results: 07/16/19 13:00 07/16/19 13:00 07/16/19 07/16/19 07/16/19 11:26 11:26 11:36 WBC Cancelled RBC Cancelled Hgb Cancelled Hct Cancelled MCV Cancelled MCH Cancelled MCHC Cancelled RDW Cancelled Plt Count Cancelled Seg Neutrophils % Cancelled Sodium Cancelled Potassium Cancelled Chloride Cancelled Carbon Dioxide Cancelled Anion Gap Cancelled BUN Cancelled Creatinine Cancelled Est GFR ( Amer) Cancelled Est GFR (Non-Af Amer) Cancelled Glucose Cancelled Calcium Cancelled Total Bilirubin Cancelled AST Cancelled Alkaline Phosphatase Cancelled Total Protein Cancelled Albumin Cancelled Urine Color STRAW Urine Appearance SLIGHTLY-CLOUDY Urine pH 7.0 Ur Specific Irwin 1.008 Urine Protein NEGATIVE Urine Glucose (UA) >=500 H Urine Ketones NEGATIVE Urine Blood SMALL H Urine Nitrite NEGATIVE Ur Leukocyte Esterase LARGE H Urine WBC (Auto) 63 Urine RBC (Auto) 3 07/16/19 07/16/19 13:00 13:00 WBC 11.0 H RBC 3.99 Hgb 12.2 Hct 35.0 L MCV 88 MCH 30.5 MCHC 34.9 RDW 13.1 Plt Count 356 Seg Neutrophils % Not Reportable Sodium 135.7 L Potassium 4.8 Chloride 99 Carbon Dioxide 31 H Anion Gap 6 BUN 13 Creatinine 0.50 L Est GFR ( Amer) > 60 Est GFR (Non-Af Amer) Glucose 246 H Calcium 8.8 Total Bilirubin 0.3 AST 19 Alkaline Phosphatase 75 Total Protein 6.2 L Albumin 3.3 L Urine Color Urine Appearance Urine pH Ur Specific Irwin Urine Protein Urine Glucose (UA) Urine Ketones Urine Blood Urine Nitrite Ur Leukocyte Esterase Urine WBC (Auto) Urine RBC (Auto) Assessment and Plan - Diagnosis (1) Diabetes Qualifiers: Diabetes mellitus type: type 2 Is this a current diagnosis for this admission?: Yes Plan: Not controlled. Home meds are Lantus 16 units nightly. Metformin 500 g p.o. twice daily. No recent A1c available. Will obtain A1c. Continue diabetic diet, basal, prandial and sliding scale insulin, Accu-Chek and hypoglycemia protocol. (2) Hypertension Is this a current diagnosis for this admission?: Yes Plan: Not controlled. Euvolemic. We will start on low-dose lisinopril and PRN hydralazine. Outpatient PCP follow-up
[2019-07-16] MEDS ORDERED: INSULIN GLARGINE,HUM.REC.ANLOG 1,000 UNIT/10 ML VIAL SUBCUT SCH (22:00)
[2019-07-16] MEDS: INSULIN GLARGINE,HUM.REC.ANLOG 1,000 UNIT/10 ML VIAL SUBCUT SCH (22:45)
[2019-07-17] MEDS ORDERED: ACETAMINOPHEN 325 MG TABLET PO ONE (00:10)
[2019-07-17] MEDS: CEPHALEXIN 500 MG CAPSULE PO SCH ×5 (00:34→23:26)
[2019-07-17 06:03] LABS: HEMATOCRIT 37.4 % (36.0-47.0); HEMOGLOBIN 12.6 g/dL (12.0-15.5); MEAN CORPUSCULAR HEMOGLOBIN 29.5 pg (27.0-33.4); MEAN CORPUSCULAR HGB CONC 33.8 g/dL (32.0-36.0); MEAN CORPUSCULAR VOLUME 87 fl (80-97); PLATELET COUNT 365 10^3/uL (150-450); RED BLOOD COUNT 4.28 10^6/uL (3.72-5.28); RED CELL DISTRIBUTION WIDTH 13.4 % (11.5-14.0); WHITE BLOOD COUNT 12.6 10^3/uL (4.0-10.5)
--- NOTE | 2019-07-17 06:09 | ER Document Report ---
Doctor's Note Notes: 07/17/19 06:07 Patient reexamined this morning at 6 AM. Patient is resting comfortably in the bed with some crayons and coloring. Affect is somewhat depressed and she is slightly tearful. She is awaiting placement. Patient's left axillary wound was rechecked. It is erythematous with some surrounding erythema that seems most consistent with yeast. I have ordered that the wound be dressed twice a day and that nystatin be applied to the surrounding areas. I do not see any reaccumulation of abscess or pus. I think the wound currently is best managed with dressing changes and nystatin. I have also ordered the patient some pain medication as needed. In addition I have asked that the patient be ambulated.
[2019-07-17] MEDS ORDERED: IBUPROFEN 600 MG TABLET PO SCH (06:15)
[2019-07-17 06:16] LABS: ALBUMIN 3.6 g/dL (3.5-5.0); ALKALINE PHOSPHATASE 78 U/L (38-126); ANION GAP 8 (5-19); ASPARTATE AMINO TRANSFERASE 20 U/L (14-36); BILIRUBIN,TOTAL 0.4 mg/dL (0.2-1.3); BLOOD UREA NITROGEN 15 mg/dL (7-20); CALCIUM 9.1 mg/dL (8.4-10.2); CARBON DIOXIDE 30 mmol/L (22-30); CHLORIDE 99 mmol/L (98-107); GLUCOSE 184 mg/dL (75-110); POTASSIUM 4.7 mmol/L (3.6-5.0); TOTAL PROTEIN 6.5 g/dL (6.3-8.2)
[2019-07-17 06:24] LABS: ABSOLUTE LYMPHOCYTES# (MANUAL) 2.5 10^3/uL (0.5-4.7); ABSOLUTE MONOCYTES # (MANUAL) 0.1 10^3/uL (0.1-1.4); BAND NEUTROPHILS % (MANUAL) 4 % (3-5); BASOPHILS % (MANUAL) 0 % (0-2); EOSINOPHILS % (MANUAL) 5 % (0-6); LYMPHOCYTES % (MANUAL) 15 % (13-45); MONOCYTES % (MANUAL) 1 % (3-13); SEGMENTED NEUTROPHILS % (MAN) 70 % (42-78); TOTAL CELLS COUNTED 100
[2019-07-17 06:26] LABS: PLATELET COMMENT ADEQUATE
[2019-07-17 06:27] LABS: TOXIC GRANULATION SLIGHT
[2019-07-17 06:28] LABS: RBC MORPHOLOGY COMMENT NORMO-CYTIC/CHROMIC
[2019-07-17] MEDS: METFORMIN HCL 500 MG TABLET PO SCH ×2 (07:39→15:00)
[2019-07-17] MEDS: IBUPROFEN 600 MG TABLET PO SCH ×3 (07:40→21:46)
[2019-07-17] MEDS: VANCOMYCIN HCL INJ 1000 MG VIAL IV SCH ×2 (09:04→21:56)
[2019-07-17] MEDS: DIVALPROEX SODIUM 125 MG CAP.SPRINK PO SCH ×2 (09:05→17:56)
[2019-07-17] MEDS: INSULIN LISPRO 100 UNIT/ML 3 ML VIAL SUBCUT SCH ×4 (09:09→21:53)
--- NOTE | 2019-07-17 10:24 | ER Document Report ---
Doctor's Note Notes: 07/16/19 18:30 Met with Patient as a check in and to try and clarify her report of a suicide attempt 40 years ago. Patient reported she was doing "ok" but was wondering what was happening regarding her living arrangement. She was advised that Roberto Cespedes was continuing to work on her case and would likely be in to talk with her tomorrow morning. Discussed with Patient her past and current mental health history. Patient reported when living with her daughter and before admission she was feeling depressed ands fairly hopeless about her situation. She reported feeling as though she had failed in life and failed herself. She reported feeling like dying at times prior to admission to [facility] and denied active suicidality or having suicidal ideation, intent or plan.
[2019-07-17] MEDS: LISINOPRIL 5 MG TABLET PO SCH (11:11)
[2019-07-17] MEDS: HYDROCODONE/ACETAMINOPHEN 5-325 MG TABLET PO SCH ×2 (15:00→21:57)
[2019-07-17] MEDS: INSULIN GLARGINE,HUM.REC.ANLOG 1,000 UNIT/10 ML VIAL SUBCUT SCH (21:54)
[2019-07-18] MEDS: CEPHALEXIN 500 MG CAPSULE PO SCH ×2 (05:05→11:57)
[2019-07-18] MEDS: HYDROCODONE/ACETAMINOPHEN 5-325 MG TABLET PO SCH ×2 (05:06→13:39)
[2019-07-18] MEDS: IBUPROFEN 600 MG TABLET PO SCH ×2 (06:21→13:40)
[2019-07-18] MEDS: INSULIN LISPRO 100 UNIT/ML 3 ML VIAL SUBCUT SCH ×2 (08:32→11:58)
[2019-07-18] MEDS: METFORMIN HCL 500 MG TABLET PO SCH (08:32)
--- NOTE | 2019-07-18 10:04 | ER Document Report ---
Doctor's Note Notes: 07/18/19 09:59 Berenice CONDE KM to present the case of this patient after she had removed a packing which was saturated with purulent material. See Dr. Torres note from yesterday in which he saw the erythema surrounding the incision and drainage per Dr. Enciso on 08 July. I examined this wound as well after the patient got out of the shower and patient appears to have some cellulitis around this area and has a PICC line in the right arm which appears to have no obvious infection in it. Patient also reports she has some on her groin area and examination with FINISHING AND SHIPPING SUPERVISOR revealed that she has erythema approximately 3/2 cm on the right pudendal inguinal area as well as a 2 cm diameter on the left inguinal I will write for Diflucan as well as Levaquin IV. 07/18/19 10:04 I also asked the areas be delineated by purple pen. In this way we may establish where there there is any increase or decrease in the cellulitis
[2019-07-18] MEDS ORDERED: LEVOFLOXACIN 750 MG/D5W RTU 750 MG/150 ML RTUPB IV ONE (10:05)
[2019-07-18] MEDS ORDERED: FLUCONAZOLE 400 MG/NS RTU 400 MG/200 ML RTUPB IV ONE (10:05)
[2019-07-18] MEDS: VANCOMYCIN HCL INJ 1000 MG VIAL IV SCH (10:28)
[2019-07-18] MEDS: DIVALPROEX SODIUM 125 MG CAP.SPRINK PO SCH (10:30)
[2019-07-18] MEDS: LISINOPRIL 5 MG TABLET PO SCH (10:30)
--- NOTE | 2019-07-18 11:57 | ER Document Report ---
Doctor's Note Notes: 07/18/19 11:54 At 1155 I was advised by nursing staff for this patient in room 45 Ms. Ross that she is to be transferred for long-term care and needs a discharge summary. Also she needs hard scripts & F L2 for long-term care form. I signed the [place] to form and dated it 18 July 2019 patient has a PICC line in her right upper extremity because of MRSA to her left axillary area cellulitis status post incision and drainage by Dr. Enciso.
[2019-07-18 14:17] VITALS: BP 170/65
== END 2019-07-18 14:20 ==
LOC: ER 16:51
DX: R45.851 Suicidal ideations (principal); L03.112 Cellulitis of left axilla; B95.62 Methicillin resistant Staphylococcus aureus infection as the cause of diseases classified elsewhere; N30.01 Acute cystitis with hematuria; F20.9 Schizophrenia, unspecified; L53.9 Erythematous condition, unspecified; I10 Essential (primary) hypertension; E11.9 Type 2 diabetes mellitus without complications; Z98.890 Other specified postprocedural states; Z75.1 Person awaiting admission to adequate facility elsewhere
CPT/HCPCS: A9270 ×55; 36415; 80053; 80307; 81001; 82962; 83036; 85025; 87040; 87086; 93005; 93010; 96365; 96366; 96367; 99285; J0696; J1815; J1956; J3370; J3490

== ENCOUNTER 2019-08-08 14:34 | Emergency (ER) | payer MEDICARE ==
[2019-08-08] MEDS ORDERED: CLINDAMYCIN HCL 150 MG CAPSULE PO ONE (15:27)
[2019-08-08] MEDS ORDERED: GENTAMICIN SULFATE INJ 80 MG/2 ML VIAL IM ONE (15:28)
[2019-08-08] MEDS ORDERED: PREDNISONE 20 MG TABLET PO ONE (15:29)
--- NOTE | 2019-08-08 16:21 | ER Document Report ---
HPI - HPI Patient complains to provider of: Skin rash Time Seen by Provider: 08/08/19 15:00 Onset/Duration: Persistent Pain Level: 1 Context: Patient presents with pruritic skin rash for the past 2 weeks. Patient states that she has had a rash to the arm that is been off and on although became erythematous today. Patient is currently staying at [facility] for rehab for wound care to them left axillary abscess. Patient states that she did have some yeast underneath her breast and abdominal folds that they were treating with a topical antifungal cream. Patient states the nurse was applying this to the arm as well but did not put any there today. Patient denies any fever or drainage from the wound. Patient is not currently taking any antibiotics. Associated Symptoms: Other - Skin rash to left arm. denies: Fever Exacerbated by: Denies Relieved by: Denies Similar symptoms previously: No Recently seen / treated by doctor: Yes - ROS ROS below otherwise negative: Yes Systems Reviewed and Negative: Yes All other systems reviewed and negative - CONSTITUTIONAL Constitutional: DENIES: Fever, Chills - NEURO Neurology: DENIES: Weakness - RESPIRATORY Respiratory: DENIES: Trouble Breathing, Coughing - GASTROINTESTINAL Gastrointestinal: DENIES: Nausea, Patient vomiting - MUSCULOSKELETAL Musculoskeletal: DENIES: Extremity pain - DERM Skin Color: Erythema Skin Problems: Rash Past Medical History - General Information source: Patient - Social History Smoking Status: Never Smoker Frequency of alcohol use: None Drug Abuse: None Lives with: Snf - For rehab Family History: Hypertension - Past Medical History Cardiac Medical History: Reports: Hx Hypercholesterolemia, Hx Hypertension Endocrine Medical History: Reports: Hx Diabetes Mellitus Type 2 Renal/ Medical History: Denies: Hx Peritoneal Dialysis Musculoskeletal Medical History: Reports Hx Arthritis Psychiatric Medical History: Reports: Hx Bipolar Disorder, Hx Schizophrenia Infectious Medical History: Reports: Hx MRSA, Other - Hidradenitis Past Surgical History: Reports: Hx Section, Hx Cholecystectomy, Hx Orthopedic Surgery - right ankle, Other - Abscess I&D Vertical Provider Document - CONSTITUTIONAL Agree With Documented VS: Yes Exam Limitations: No Limitations General Appearance: WD/WN, No Apparent Distress - INFECTION CONTROL TRAVEL OUTSIDE OF THE [place] IN LAST 30 DAYS: No - HEENT HEENT: Atraumatic, Normocephalic - NECK Neck: Normal Inspection, Supple - RESPIRATORY Respiratory: Breath Sounds Normal, No Respiratory Distress - CARDIOVASCULAR Cardiovascular: Regular Rate, Regular Rhythm - BACK Back: Normal Inspection - MUSCULOSKELETAL/EXTREMETIES Musculoskeletal/Extremeties: MAEW - NEURO Level of Consciousness: Awake, Alert, Appropriate Motor/Sensory: No Motor Deficit - DERM Integumentary: Warm, Dry Notes: Patient with wound to left axilla with packing in place, granulation tissue noted to wound bed, no purulent drainage. Patient does have erythema surrounding the wound to the left axilla with surrounding pustular dried scaling lesions. Patient with extensive dry skin to the dorsal aspect of the left upper arm with papular pustular lesions to the left shoulder and left axillary area. No fluctuance, no concern for drainable abscess at this time. Course - Re-evaluation Re-evalutation: 08/08/19 15:[address] hendrickson, Dr. hendrickson to room for exam. Advises starting patient on Diflucan daily for the next several days given a dose of gentamicin 80 mg IM x1 here and starting patient on steroids as well as clindamycin. No additional labs advised at this time. 08/08/19 Patient presents with skin rash with a mixed appearance. Some areas look suspicious for a contact dermatitis likely from excessive use of adhesive bandaging to the axillary wound. Patient also with some areas that look suspicious for likely folliculitis with diffuse erythema worrisome for developing cellulitis. Patient with dry scaling skin in areas to the dorsum of the arms bilaterally worrisome for possible underlying eczema. Patient additionally has erythematous rash to skin folds worrisome for intertrigo. Patient otherwise nontoxic in appearance. Discharge - Discharge Clinical Impression: Cellulitis of axilla, left, Folliculitis, Intertrigo Contact dermatitis Qualifiers: Contact dermatitis type: unspecified Contact dermatitis trigger: unspecified trigger Qualified Code(s): L25.9 - Unspecified contact dermatitis, unspecified cause Condition: Stable Disposition: HOME, SELF-CARE Instructions: Contact Dermatitis ([facility]), Cellulitis ([facility]), Clindamycin ([facility]), Folliculitis ([facility]), Steroid Medication Additional Instructions: Return immediately for any new or worsening symptoms Followup with your primary care provider, call tomorrow to make a followup appointment Limit use of tape to avoid irritation of the skin Prescriptions: Clindamycin HCl 300 mg PO QID #28 capsule Prednisone [Deltasone 20 mg Tablet] 2 tab PO DAILY 4 Days #12 tablet Fluconazole [Diflucan] 150 mg PO ASDIR PRN #2 tablet PRN Reason: Referrals: JESSIKA BURGESS MD [Primary Care Provider] - Follow up as needed
[2019-08-08 16:32] VITALS: BP 151/62
== END 2019-08-08 17:47 | disposition home or self-care (01) ==
LOC: ER 14:34
DX: L25.9 Unspecified contact dermatitis, unspecified cause (principal); L03.112 Cellulitis of left axilla; L73.9 Follicular disorder, unspecified; L30.4 Erythema intertrigo; R21 Rash and other nonspecific skin eruption; I10 Essential (primary) hypertension; E11.9 Type 2 diabetes mellitus without complications
CPT/HCPCS: 99284; 96372; A9270 ×2; J1580; J7512